=== PATIENT | male | born 1935 | race Caucasian/White ===

== ENCOUNTER 2020-06-22 11:11 | Outpatient (REF) | payer MEDICARE, SELFPAY | END 2020-06-22 11:12 | disposition home or self-care (01) | LOC: HO.LAB 11:11 | PROVIDERS: Visit Provider Internal Medicine | DX: Z20.828 Contact with and (suspected) exposure to other viral communicable diseases (principal) | CPT/HCPCS: C9803; U0003 ==

== ENCOUNTER 2020-12-28 10:44 | Emergency (ER) | payer MEDICARE, SELFPAY ==
--- NOTE | ~2020-12-28 | CT_ITS ---
EXAMINATION: CT ABDOMEN AND PELVIS WITHOUT CONTRAST CLINICAL INFORMATION: 85-year-old male with low back pain. Abdominal aortic aneurysm. Metastatic bone lesion. COMPARISON: None TECHNIQUE: Multidetector volumetric imaging was performed from the superior aspect of the liver through the pubic symphysis. Sagittal and coronal reformatted images were obtained on the technologist's workstation. Evaluation of solid organs is suboptimal given lack of IV contrast. This CT examination was performed using dose optimization techniques as appropriate, variously including the following: *Automated exposure control *Adjustment of mA and/or kV according to patient size (this includes techniques or standardized protocols for targeted exams where dose is matched to indication/reason for exam; i.e. extremities or head) *Use of iterative reconstruction technique DLP: 173 mGy-cm FINDINGS: Visualized lung bases are well aerated. The liver demonstrates normal size, contour and attenuation. A few subcentimeter hepatic hypodensities are too small to accurately characterize. The gallbladder is normal in appearance. The pancreas, spleen and adrenal glands are unremarkable. Symmetrically sized kidneys. No renal calculi or hydronephrosis bilaterally. Bilateral renal hypodensities are present, some of which demonstrate cystic characteristics and others which are too small to accurately characterize. Largest right-sided renal cyst measures approximately 3.7 cm. Largest left-sided renal cyst measures approximately 2.6 cm. The stomach is decompressed and therefore not accurately characterize. Normal caliber loops of small bowel. There is a moderate stool burden throughout the colon. Normal appendix. Normal caliber abdominal aorta which demonstrates moderate atherosclerotic disease. No gross retroperitoneal lymphadenopathy. The bladder is normal in appearance. The prostate gland is normal in size. No gross free pelvic fluid. No inguinal lymphadenopathy. Small fat-containing inguinal hernias bilaterally. Diffuse osteopenia. Moderate to severe diffuse degenerative changes of the spine. CT/CT abdomen pelvis wo con IMPRESSION: -Moderate colonic stool burden suggesting constipation. Clinical correlation recommended. -Bilateral renal cysts.
[2020-12-28 11:00] VITALS: BP 136/68; PULSE 58; RESP 16; TEMP 36.2; O2SAT 98; BMI 21.5
--- NOTE | 2020-12-28 11:17 | ED_ITS ---
HPI - Back Pain/Injury General Chief Complaint: Back Pain/Injury Stated Complaint: BACK WALSH DOWN TO FEET Time Seen by Provider: 12/28/20 11:17 Source: patient and family (Daughter) Mode of arrival: ambulatory Limitations: no limitations History of Present Illness HPI Narrative: 85-year-old male came in for evaluation of low back pain, patient stated pain started 1 week ago pain is a dull low back ache, radiates d own to the right thigh area and right leg, pain is worsening with movement and walking, nothing relieves the pain, no urinary symptoms or blood in the urine, no recent injury or fall, patient normally able to walk around for the past couple days he has been walking with a cane due to the pain, patient was seen at another ER last week was given muscle relaxant with no relief. Patient declined any abdominal pain. No fever, no chills. Related Data Allergies Allergy/AdvReac Type Severity Reaction Status Date / Time No Known Allergies Allergy Verified 12/28/20 11:20 Review of Systems Review of Systems: all other systems are reviewed and are negative Constitutional: Reports as per HPI and Reports no additional constitutional complaints Eyes: Reports as per HPI and Reports no additional eye complaints Reports system reviewed and no additional complaints, except as documented Cardiovascular: Reports as per HPI and Reports no additional cardiovascular complaints Respiratory: Reports as per HPI and Reports no additional respiratory complaints Gastrointestinal: Reports as per HPI and Reports no additional gastrointestinal complaints Genitourinary: Reports no additional female genitourinary complaints Musculoskeletal: Reports no additional musculoskeletal complaints Skin/Breast: Reports system reviewed and no additional complaints, except as docu Psychiatric: Reports no additional psychiatric complaints Endocrine: Reports no additional endocrine complaints Hematologic/Lymphatic: Reports no additional hematologic/lymphatic complaints Allergic/Immunologic: Reports no additional allergic/immunologic complaints Reports system reviewed and no additional complaints, except as documented and Reports Abnormal speech present [facility] Social History Social History Advance Directives: Yes Advance Directives on File: Yes Advance Directives Date on File: 12/28/20 Physical Exam Vital Signs: Vital Signs: Last Vital Signs Temp 97.1 F 12/28/20 11:00 Pulse 58 12/28/20 11:00 Resp 16 12/28/20 11:00 BP 136/68 12/28/20 11:00 Pulse Ox 98 12/28/20 11:00 Body Mass Index 21.5 vital signs have been reviewed as appeared to be correct. Blood pressure normal. Heart rate normal. Respiration rate normal. Temperature normal. Oxygen saturation normal. Appearance: Alert. Oriented X3. No acute distress. Head: Normal external exam. Normocephalic. Atraumatic. No Mckeon signs noted. No raccoon eyes noted Eyes: PERRLA. EOMI. Conjunctiva and sclera normal. Eyelids normal. ENT: TM's Normal. Pharynx normal. Uvula midline. Moist mucous membranes. No trismus noted. No drooling noted. No muffled voice noted. Neck: Normal inspection. Neck supple. FROM. No adenopathy. Thyroid Normal. No meningeal signs. No neck mass noted. CVS: Normal heart rate and rhythm. Heart sound normal. No murmurs noted. Pulses normal throughout. Respiratory: No respiratory distress. Painless inspiration. Breath sounds norm al. No wheezes/rales/rhonchi noted. Chest nontender. No accessory muscle usage noted or decreased air movement noted. Abdomen: Soft and nontender. Bowel sounds normal in all 4 quadrants. No distenti on noted. no abdominal pulsatile mass. Back: No CVA tenderness. Full range of motion noted. Skin: Skin warm and dry. Normal skin color. Normal skin turgor. No rashes/lesions/lacerations noted. Extremities: No lower extremity edema. Extremities exhibit normal range of motion. Extremities nontender. Neuro: Oriented X 3. No motor deficit. No sensory deficit. Reflexes normal. Course Course Course Narrative: Assessment and plan. 85-year-old male came in with lower back pain radiates to the right lower extremities for 1 week. Patient had previous evaluation at different ER was pre scribed muscle relaxant which is not improving the patient. Patient has unremarkable labs / UA. Patient also had a CT of the abdomen pelvis which ruled out metastatic lesion to the lumbar spine versus AAA versus kidney issue. Physical exam laboratory / CT are more consistent with low back pain with right- sided sciatica. Patient on Eliquis was instructed not to take NSAIDs. Will discharge the patient was bedrest, Tylenol p.r.n. MDM - Back Pain/Injury Lab Data Attestation: I reviewed the patient's lab results. Result diagrams: 12/28/20 11:37 12/28/20 11:37 Labs: Lab Results 12/28/20 12/28/20 12/28/20 Range/Units 11:37 11:37 12:08 WBC 4.6 L (4.8-10.8) X10*3/uL RBC 4.25 L (4.60-5.80) X10*6/uL Hgb 13.1 L (14.0-18.0) g/dl Hct 40.3 L (42-52) % MCV 94.8 (80-98) fL MCH 30.8 (27.0-33.0) pg MCHC 32.5 (31.0-36.0) g/dl RDW 14.2 (11.0-16.0) % Plt Count 182 (160-400) X10*3/uL MPV 10.5 (9.4-12.4) fL Immature Gran % (Auto) 0.2 (0.0-0.4) % Neut % (Auto) 46.1 (45-73) % Lymph % (Auto) 37.3 (20-40) % [place] % (Auto) 13.3 H (2-11) % Eos % (Auto) 2.4 (0-4) % Baso % (Auto) 0.7 (0-2) % Lymph # (Auto) 1.7 (1.2-4.9) X10*3/uL [place] # (Auto) 0.6 (0.1-1.2) X10*3/uL Eos # (Auto) 0.1 (0.0-0.4) X10*3/uL Baso # (Auto) 0.0 (0.0-0.2) X10*3/uL Abs Immat Gran (auto) 0.01 (0.00-0.03) X10*3/uL Absolute Neuts (auto) 2.1 (2.0-8.3) X10*3/uL Absolute Nucleated RBC 0.000 (0.0-0.012) X10*3/uL Nucleated RBC % (auto) 0.0 (0.0-0.2) /100WBC Sodium 139 (135-145) mmol/L Potassium 4.6 (3.3-5.1) mmol/L Chloride 104 (96-108) mmol/L Carbon Dioxide 26 (22-29) mmol/L Anion Gap 14 (12-20) BUN 22 H (9-16) mg/dL Creatinine 1.01 (0.5-1.4) mg/dL Estim Creat Clear Calc 51.4 Estimated GFR > 60 Random Glucose 111 (60-115) mg/dL Calcium 9.5 (8.4-10.2) mg/dL Urine Color YELLOW Urine Appearance CLEAR Urine pH 7.0 (5.0-8.0) Ur Specific [place] 1.015 (1.005-1.025) Urine Protein NEG (NEG-TRACE) MG/DL Urine Glucose (UA) NEG (NEG) MG/DL Urine Ketones NEG (NEG) MG/DL Urine Blood NEG (NEG) Urine Nitrite NEG (NEG) Ur Leukocyte Esterase NEG (NEG) Imaging Data CT scan - abdomen: Radiologist's impression: -Moderate colonic stool burden suggesting constipation. Clinical correlation recommended. -Bilateral renal cysts. Discharge Plan Discharge Clinical Impression: Sciatica Qualifiers: Laterality: right Qualified Code(s): M54.31 - Sciatica, right side Patient Disposition: Home, Self-Care Instructions: Lumbar Radiculopathy (ED) Referrals: Kellie Guerrero MD [Primary Care Provider] - 2 days
[2020-12-28 11:42] LABS: MANUAL DIFF FLAG NO
[2020-12-28 11:45] LABS: Basophils Percent Auto 0.7 % (0-2); Eosinophils Absolute Auto 0.1 X10*3/uL (0.0-0.4); Eosinophils Percent Auto 2.4 % (0-4); Hematocrit 40.3 % (42-52); Hemoglobin 13.1 g/dl (14.0-18.0); Imm Gran Abs Auto 0.01 X10*3/uL (0.00-0.03); Imm Gran Pct Auto 0.2 % (0.0-0.4); Lymphocytes Absolute Auto 1.7 X10*3/uL (1.2-4.9); Lymphocytes Percent Auto 37.3 % (20-40); Mean Corpuscular HGB Conc 32.5 g/dl (31.0-36.0); Mean Corpuscular Hemoglobin 30.8 pg (27.0-33.0); Mean Corpuscular Volume 94.8 fL (80-98); Mean Platelet Volume 10.5 fL (9.4-12.4); Monocytes Absolute Auto 0.6 X10*3/uL (0.1-1.2); Monocytes Percent Auto 13.3 % (2-11); Neutrophils Absolute Auto 2.1 X10*3/uL (2.0-8.3); Neutrophils Percent Auto 46.1 % (45-73); Platelet Count 182 X10*3/uL (160-400); Red Blood Count 4.25 X10*6/uL (4.60-5.80); Red Cell Distribution Width 14.2 % (11.0-16.0); White Blood Count 4.6 X10*3/uL (4.8-10.8)
[2020-12-28] MEDS: Acetaminophen 325 MG TABLET 650 MG PO (12:01)
[2020-12-28 12:07] LABS: Anion Gap 14 (12-20); Blood Urea Nitrogen 22 mg/dL (9-16); Calcium 9.5 mg/dL (8.4-10.2); Carbon Dioxide 26 mmol/L (22-29); Chloride 104 mmol/L (96-108); Creatinine Clr Calc Pharmacy 51.4; Estimated Glomerular Filt Rate > 60; Glucose Random 111 mg/dL (60-115); Potassium 4.6 mmol/L (3.3-5.1); Sodium 139 mmol/L (135-145)
[2020-12-28 12:14] LABS: Glucose Urine UA NEG (NEG); Leukocyte Esterase Urine NEG (NEG); Nitrite Urine NEG (NEG); Specific Gravity - Urine 1.015 (1.005-1.025); Urine Blood NEG (NEG); Urine Ketones NEG (NEG); Urine Protein NEG (NEG-TRACE)
[2020-12-28 12:17] LABS: Appearance Urine CLEAR; Color Urine YELLOW
== END 2020-12-28 13:26 | disposition home or self-care (01) ==
PROVIDERS: Emergency Provider Emergency Medicine; PCP Internal Medicine
DX: M54.31 Sciatica, right side (principal); Z79.01 Long term (current) use of anticoagulants
CPT/HCPCS: 36415; 74176; 80048; 81003; 85025; 99283; 99284

== ENCOUNTER → 2020-12-30 11:48 | Outpatient (BNVA) | payer MEDICARE, SELFPAY | PROVIDERS: PCP Internal Medicine; Visit Provider Nurse Practitioner Family | DX: M79.18 Myalgia, other site (principal) | CPT/HCPCS: 20552; 99202; J3300 ==

== ENCOUNTER 2021-01-12 09:52 | Outpatient (REF) | payer MEDICARE, SELFPAY ==
--- NOTE | ~2021-01-12 | MR_ITS ---
EXAMINATION: MR LUMBAR SPINE WITHOUT CONTRAST CLINICAL INFORMATION: Lumbar radiculopathy. COMPARISON: CT scan of the abdomen and pelvis 12/28/2020. TECHNIQUE: MRI of the lumbar spine was obtained using routine sequences without contrast. FINDINGS: There is grade 1 anterolisthesis of L5 on S1 related to facet degenerative changes at this level. Slight grade 1 retrolisthesis of L1 on L2, L2 on L3, and L3 on L4. Body heights are preserved. There are type I degenerative endplate changes at L3-L4 and to a lesser degree at L1-L2. There is loss of intervertebral disc height and T2 signal intensity at multiple levels related to disc degeneration. The tip of the conus medullaris is located at L1. No mass effect on the conus. Visualized distal cord signal intensity is normal. At L1-L2 there is a diffusely bulging disc. Mild canal stenosis. No mass effect on traversing or foraminal nerve roots. At L2-L3 there is a small shallow right subarticular protrusion superimposed upon a bulging disc. Bilateral facet degenerative change. Mild canal stenosis. There is asymmetric narrowing of the right subarticular zone causing displacement of the right traversing L3 nerve roots. No foraminal nerve root compression. At L3-L4 there is a diffusely bulging disc. Bilateral facet degenerative change. Moderate canal stenosis. No substantial mass effect on the traversing or foraminal nerve roots. At L4-L5 there is a diffusely bulging disc. Bilateral facet degenerative change. Moderate canal stenosis. Subarticular zone narrowing causes displacement of both traversing L5 nerve roots. Mild mass effect on both L4 foraminal nerve roots. At L5-S1 there is a diffusely bulging disc. Advanced bilateral facet degenerative change. No canal stenosis. Moderate compression of the right L5 foraminal nerve root. Limited visualization of the retroperitoneal anatomy reveals multiple small well marginated benign-appearing cystic lesions within both kidneys. Psoas and paraspinal muscle groups are symmetric. 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 Slight grade 1 retrolisthesis of L1 on L2, L2 on L3, and L3 on L4. There is moderate canal stenosis at L3-L4 and L4-L5. Mild canal stenosis at L1-L2 and L2-L3. There are varying degrees of mass effect on the traversing and foraminal segments of the nerve roots as described above. For instance there is moderate compression of the right L5 foraminal nerve root related to degenerative changes at L5-S1.
== END 2021-01-12 09:53 | disposition home or self-care (01) ==
LOC: HO.MRI 09:52
PROVIDERS: PCP Internal Medicine; Visit Provider Nurse Practitioner Family
DX: M54.16 Radiculopathy, lumbar region (principal)
CPT/HCPCS: 72148

== ENCOUNTER 2021-01-20 06:34 | Outpatient (REF) | payer MEDICARE, SELFPAY ==
--- NOTE | ~2021-01-20 | FL_ITS ---
EXAMINATION: XR FLUOROSCOPY WITH IMAGES CLINICAL INFORMATION: Lumbar radiculopathy. COMPARISON: None. TECHNIQUE: Fluoroscopy performed by Dr. Max. Fluoroscopy time: 1.1 minutes DAP: 5 Gy-cm2 Images: 2 FINDINGS: Images demonstrate needle placement and contrast injection adjacent to the right lateral L5 vertebral body. FL/FL guidance in treatment room IMPRESSION: Fluoroscopy guidance for spinal injection.
== END 2021-01-20 06:35 | disposition home or self-care (01) ==
LOC: HO.RADIR 06:34
PROVIDERS: Visit Provider Internal Medicine
DX: M54.16 Radiculopathy, lumbar region (principal); M46.1 Sacroiliitis, not elsewhere classified; M79.18 Myalgia, other site; I48.91 Unspecified atrial fibrillation
CPT/HCPCS: 20552; 64483; J1040; J1100; Q9967

== ENCOUNTER → 2021-02-12 13:50 | Outpatient (BNVA) | payer MEDICARE, SELFPAY | PROVIDERS: PCP Internal Medicine; Visit Provider Nurse Practitioner Family | DX: M79.18 Myalgia, other site (principal); Z79.891 Long term (current) use of opiate analgesic | CPT/HCPCS: 99212 ==

== ENCOUNTER 2021-02-17 06:20 | Outpatient (REF) | payer MEDICARE, SELFPAY | END 2021-02-17 06:21 | disposition home or self-care (01) | LOC: HO.RADIR 06:20 | PROVIDERS: Visit Provider Internal Medicine | DX: M54.16 Radiculopathy, lumbar region (principal) | CPT/HCPCS: 99212; J1040; Q9967 ==

== ENCOUNTER → 2021-10-27 14:29 | Outpatient (BNVA) | payer MEDICARE, SELFPAY | PROVIDERS: PCP Internal Medicine; Visit Provider Nurse Practitioner Family | DX: M62.830 Muscle spasm of back (principal); M79.18 Myalgia, other site | CPT/HCPCS: 20552; 99212 ==

== ENCOUNTER 2023-09-20 08:12 | Inpatient (IN) | payer MEDICARE, SELFPAY ==
[2023-09-20] VITALS (8 sets, daily range): BP systolic 113–166; BP diastolic 52–85; PULSE 58–80; RESP 14–24; TEMP 36.4–37.1; O2SAT 88–96; BMI 22.2
--- NOTE | ~2023-09-20 | XR_ITS ---
EXAMINATION: XR CHEST CLINICAL INFORMATION: Shortness of breath hypoxic CHF pneumonia COMPARISON: None available. TECHNIQUE: Frontal view of the chest was obtained. FINDINGS: Blunting of the right costophrenic recess which may reflect a trace pleural effusion versus scarring. Right basilar radiopacity suggesting evolving infectious inflammatory etiology. Interstitial prominence. No pneumothorax. Trachea is midline. Cardiac mediastinal silhouette is borderline enlarged. Aorta demonstrates atherosclerotic calcifications. Osseous structures are intact. Soft tissues are unremarkable. XR/XR chest 1V IMPRESSION: 1. Blunting of the right costophrenic recess which may reflect a trace pleural effusion versus scarring. 2. Right basilar radiopacity suggesting evolving infectious inflammatory etiology. 3. Interstitial prominence.
--- NOTE | 2023-09-20 08:48 | ECG_ITS ---
Test Reason : DYSPNEA Blood Pressure : / mmHG Vent. Rate : 055 BPM Atrial Rate : 340 BPM P-R Int : 000 ms QRS Dur : 096 ms QT Int : 434 ms P-R-T Axes : 000 057 070 degrees QTc Int : 415 ms Atrial fibrillation Left ventricular hypertrophy with repolarization abnormality ( Sokolow-Kiran , Jose product ) Possible Anterior infarct , age undetermined Abnormal ECG No previous ECGs available Referred By: Brian Forman Electronically Signed By:Jeff Murray
--- NOTE | 2023-09-20 08:49 | ED_ITS ---
HPI - SOB/Dyspnea General Chief Complaint: Dyspnea Stated Complaint: SOB Time Seen by Provider: 09/20/23 08:35 Source: patient Mode of arrival: ambulatory Limitations: no limitations History of Present Illness HPI Narrative: 88-year-old male with a history of atrial fibrillation, hypertension, dementia who was brought to emergency department by ambulance for evaluation of shortness of breath. Information came from the patient, the patient's daughter Armen who was a nurse here at [facility] and is granddaughter china who lives with him. Patient has been feeling short of breath for 2-3 days. Patient has had rhinorrhea and occasional cough. He states that he has been feeling very fatigued over the past several days, he is feeling lightheaded and dizzy. He states that minimal exertion such as getting dressed makes him short of breath. Patient denied shortness of breath but he states he did have some pain between his shoulder blades last night but had difficulty describing the care tear and timing of the pain. Patient denied fever or chills. He states he has had rhinorrhea for 1 week. Denied sore throat. He states that he has an occasional cough. He denied chest pain. He does have dyspnea on exertion. He denied nausea, vomiting, dark black stools or bloody stools. Patient states he has been noncompliant with his Eliquis for days to possibly months. Related Data Home Medications Medication Instructions Recorded Confirmed amlodipine 5 mg tablet 5 mg PO DAILY 09/20/23 09/20/23 apixaban 5 mg tablet (Eliquis) 5 mg PO BID 09/20/23 09/20/23 cholecalciferol (vitamin D3) 25 25 mcg PO DAILY 09/20/23 09/20/23 mcg (1,000 unit) tablet donepezil 5 mg tablet 5 mg PO BEDTIME 09/20/23 09/20/23 lisinopril 10 mg tablet 10 mg PO DAILY 09/20/23 09/20/23 omeprazole 40 mg capsule,delayed 40 mg PO DAILY 09/20/23 09/20/23 release Allergies Allergy/AdvReac Type Severity Reaction Status Date / Time No Known Allergies Allergy Verified 09/20/23 08:35 Review of Systems 2 Review of Systems: Yes all other systems are reviewed and are negative PMFSH Past Medical History [facility] Narrative: Social history: He lives with his granddaughter lives was here in the emergency department with him. Patient is a former smoker and stop smoking 12 years prior he has a greater than 40 pack-year history of smoking. Patient denies alcohol and drug use. Medical History (Updated 09/20/23 @ 12:08 by Brian Forman MD) Sacroiliitis Lumbar radiculopathy, right Gluteal pain Atrial fibrillation Social History Social History Smoked in Last 30 Days: No Use of substances other than those prescribed or required for medical reasons: No Advance Directives: No Advance Directives Information Provided: Yes Advance Directives Date on File: 12/28/20 Physical Exam 2 Vital Signs: Vital Signs: Last Vital Signs Temp 97.6 F 09/20/23 12:24 Pulse 66 09/20/23 12:31 Resp 24 H 09/20/23 12:24 BP 150/82 H 09/20/23 12:31 Pulse Ox 96 09/20/23 12:24 O2 Del Method Nasal Cannula 09/20/23 12:24 O2 Flow Rate 2 09/20/23 12:24 BMI result Body Mass Index 22.2 Vital signs revealed an elevated blood pressure of 166/78. Patient's O2 saturation on room air arrange from 88-90%, on 2 L via nasal cannula patient's O2 saturation is 94%. Exam: General: Awake, alert, appears to be mildly dyspneic Head: Normocephalic, atraumatic EENT: PERRL, Lids normal, sclera normal, conjunctiva normal, nose normal , ears normal, throat without erythema or exudates Neck: Supple, no adenopathy Lung: Rales at the bases with no wheezing or rhonchi, breath sounds are symmetric bilaterally Chest: symmetric movement, nontender Heart: regular rate and rhythm, normal S1, S2 no murmurs or rubs Abdomen: soft, non-tender, nondistended, normal bowel sounds Back: no vertebral tenderness, no CVAT Extremities: no deformities, moves all extremities symmetrically, trace to 1+ pitting edema bilaterally symmetric Neuro: Awake, alert, oriented, normal speech, cranial nerves intact, moves all extremities symmetrically Psych: Pleasant, cooperative Medications Administered Generic Name Dose Route Start Last Admin Trade Name Freq PRN Reason Stop Dose Admin Heparin Sodium/Sodium Chloride 25,000 unit in 250 mls @ 0 mls/hr 09/20/23 12:00 09/20/23 12:48 Heparin Sodium,Porcine/1/2ns IVCONT 12 units/kg/hr .Q0M KELSEY 8.41 mls/hr Administration Protocol Per Protocol Discontinued Medications Generic Name Dose Route Start Last Admin Trade Name Racheal PRN Reason Stop Dose Admin Aspirin 324 mg 09/20/23 11:58 09/20/23 12:30 Aspirin 81 Mg Tab.Chew PO 09/20/23 11:59 324 mg ONCE ONE Administration Furosemide 20 mg 09/20/23 10:23 09/20/23 10:43 Furosemide 20 Mg/2 Ml Vial IVPUSH 09/20/23 10:24 20 mg ONCE ONE Administration Protocol Heparin Sodium (Porcine) 4,000 unit 09/20/23 11:58 09/20/23 12:50 Heparin Sodium,Porcine 5,000 Unit/Ml Vial IVPUSH 09/20/23 11:59 4,000 unit ONCE ONE Administration Nitroglycerin 1 inch 09/20/23 11:58 09/20/23 12:31 Nitroglycerin 2 % Oint 1 Gm Packet TRANSDERMA 09/20/23 11:59 1 inch ONCE ONE Administration Medical Decision Making Medical Decision Making MDM Narrative: 88-year-old male with a history of atrial fibrillation, hypertension dementia who was brought to emergency department by ambulance for evaluation of shortness of breath times 2-3 days with increased symptoms over the past 24 hours, patient also is complaining of severe fatigue and dyspnea with minimal exertion. He did have pain between shoulder blades last night but had difficulty characterizing the timing and duration of the pain. Patient has had rhinorrhea and a occasional cough for several days. He does feel lightheaded and dizzy with exertion as well. Patient states he has been noncompliant with his Eliquis over the last several days or possibly longer. Vital signs revealed an elevated blood pressure and a low O2 saturation of 88-90% on room air, corrected with oxygen 2 L via nasal cannula. Differential diagnosis: ?Includes but is not limited to pneumonia, congestive heart failure, viral syndrome, anemia, electrolyte abnormalities, arrhythmias Following evaluation was ordered: CBC, CMP, BNP, lactic acid, lipase, PT/INR, PTT, troponin, urinalysis, COVID-19, influenza, RSV, blood cultures x2 Patient was initially treated with the following: Oxygen 2 L via nasal cannula Course: 12:01 My interpretation patient's laboratory evaluation as follows: Platelets low 157,000, potassium high 5.7. BUN elevated 22 with a normal creatinine of 0.99. Troponin elevated 2089. 3 hour troponin is due at 12:30 hours. BNP elevated 08/15/2045. LFTs and lipase were normal. Patient's 12 EKG was consistent with atrial fibrillation/flutter with no acute ST segment elevation depression. Chest x-ray on my interpretation is consistent with congestive heart failure and hyperinflated lungs. I did review the radiology reading but I do not think the patient has infectious process at this time. I did consult our rubber goods repairer on-call, Dr. Murray and he did evaluate the patient in the emergency department. He felt that the patient most likely had an NSTEMI and given the fact the patient has not been taking Eliquis, Dr. Murray recommended NSTEMI heparin protocol, aspirin 324 mg orally, nitro paste 1 in to chest wall. He did agree with Lasix 20 mg IV but felt that the patient should only be gently diuresed. He also requested an echocardiogram. He felt that the patient could be managed at [facility] at this time. I will discuss admission with the covering hospitalist. 13:16 Patient's 1st high sensitive troponin I was elevated at 2089.1 with 3 hour repeat value 1648 which is less than a 50% delta. Admission/Observation Consideration of admission/observation: Escalation of care including admission/observation considered Consult Healthcare Provider Management of the patient was discussed with: Hospitalist (Dr. Werner) and Tea Room Manager (Grading Machine Feeder, Dr. Murray) Lab Data MDM Lab Attestation statement: I reviewed the patient's lab results. 09/20/23 09:30 09/20/23 09:31 Labs: Lab Results 09/20/23 09/20/23 09/20/23 Range/Units 09:30 09:31 10:23 WBC 4.8 (4.8-10.8) X10*3/uL RBC 4.65 (4.60-5.80) X10*6/uL Hgb 14.2 (14.0-18.0) g/dl Hct 44.4 (42.0-52.0) % MCV 95.5 (80.0-98.0) fL MCH 30.5 (27.0-33.0) pg MCHC 32.0 (31.0-36.0) g/dl RDW 14.2 (11.0-16.0) % Plt Count 157 L (160-400) X10*3/uL MPV 10.6 (9.4-12.4) fL Immature Gran % (Auto) 0.0 (0.0-0.4) % Neut % (Auto) 64.3 (45-73) % Lymph % (Auto) 21.9 (20-40) % Mercer % (Auto) 11.8 H (2-11) % Eos % (Auto) 1.0 (0-4) % Baso % (Auto) 1.0 (0-2) % Lymph # (Auto) 1.1 L (1.2-4.9) X10*3/uL Mercer # (Auto) 0.6 (0.1-1.2) X10*3/uL Eos # (Auto) 0.1 (0.0-0.4) X10*3/uL Baso # (Auto) 0.1 (0.0-0.2) X10*3/uL Abs Immat Gran (auto) 0.00 (0.00-0.03) X10*3/uL Absolute Neuts (auto) 3.1 (2.0-8.3) x10*3/uL Absolute Nucleated RBC 0.000 (0.0-0.012) X10*3/uL Nucleated RBC % (auto) 0.0 (0.0-0.2) /100WBC PT 13.1 (11.1-13.3) SEC INR 1.1 (0.9-1.1) APTT 30.4 (26.0-36.8) SEC Sodium 142 (135-145) mmol/L Potassium 5.7 H (3.3-5.1) mmol/L Chloride 108 (96-108) mmol/L Carbon Dioxide 28 (22-29) mmol/L Anion Gap 12 (12-20) BUN 22 H (9-16) mg/dL Creatinine 0.99 (0.5-1.4) mg/dL Estim Creat Clear Calc 51.1 Estimated GFR > 60 Random Glucose 112 (60-115) mg/dL Lactic Acid 1.5 (0.5-2.0) mmol/L Calcium 9.3 (8.4-10.2) mg/dL Total Bilirubin 0.5 (0.0-1.0) mg/dL AST 26 (5-37) U/L ALT 17 (0-40) U/L Alkaline Phosphatase 84 (39-117) U/L Troponin I High Sens 2089.1 H* (<3.5-35.0) ng/L B-Natriuretic Peptide 2246 H (<100) pg/mL Total Protein 6.7 (6.5-8.0) g/dL Albumin 3.9 (3.5-5.0) g/dL Lipase 21 (8-78) U/L Urine Color Urine Appearance Urine pH (5.0-9.0) Ur Specific Citra (1.005-1.025) Urine Protein (Neg-Trace) mg/dL Urine Glucose (UA) (Negative) mg/dL Urine Ketones (Negative) mg/dL Urine Blood (Negative) Urine Nitrite (Negative) Ur Leukocyte Esterase (Negative) Urine RBC (0-2) /HPF Urine WBC (0-5) /HPF Ur Squamous Epith Cells (0-2) /HPF Urine Bacteria (None Seen) Hyaline Casts (0-2) /LPF Influenza Type A (PCR) NEGATIVE (Negative) Influenza Type B (PCR) NEGATIVE (Negative) RSV RNA Qual (PCR) NEGATIVE (Negative) SARS-CoV-2 RNA (RT-PCR) NEGATIVE (Negative) 09/20/23 09/20/23 Range/Units 10:57 12:16 WBC (4.8-10.8) X10*3/uL RBC (4.60-5.80) X10*6/uL Hgb (14.0-18.0) g/dl Hct (42.0-52.0) % MCV (80.0-98.0) fL MCH (27.0-33.0) pg MCHC (31.0-36.0) g/dl RDW (11.0-16.0) % Plt Count (160-400) X10*3/uL MPV (9.4-12.4) fL Immature Gran % (Auto) (0.0-0.4) % Neut % (Auto) (45-73) % Lymph % (Auto) (20-40) % Mercer % (Auto) (2-11) % Eos % (Auto) (0-4) % Baso % (Auto) (0-2) % Lymph # (Auto) (1.2-4.9) X10*3/uL Mercer # (Auto) (0.1-1.2) X10*3/uL Eos # (Auto) (0.0-0.4) X10*3/uL Baso # (Auto) (0.0-0.2) X10*3/uL Abs Immat Gran (auto) (0.00-0.03) X10*3/uL Absolute Neuts (auto) (2.0-8.3) x10*3/uL Absolute Nucleated RBC (0.0-0.012) X10*3/uL Nucleated RBC % (auto) (0.0-0.2) /100WBC PT (11.1-13.3) SEC INR (0.9-1.1) APTT (26.0-36.8) SEC Sodium (135-145) mmol/L Potassium (3.3-5.1) mmol/L Chloride (96-108) mmol/L Carbon Dioxide (22-29) mmol/L Anion Gap (12-20) BUN (9-16) mg/dL Creatinine (0.5-1.4) mg/dL Estim Creat Clear Calc Estimated GFR Random Glucose (60-115) mg/dL Lactic Acid (0.5-2.0) mmol/L Calcium (8.4-10.2) mg/dL Total Bilirubin (0.0-1.0) mg/dL AST (5-37) U/L ALT (0-40) U/L Alkaline Phosphatase (39-117) U/L Troponin I High Sens 1648.3 H* (<3.5-35.0) ng/L B-Natriuretic Peptide (<100) pg/mL Total Protein (6.5-8.0) g/dL Albumin (3.5-5.0) g/dL Lipase (8-78) U/L Urine Color Yellow Urine Appearance Clear Urine pH 5.5 (5.0-9.0) Ur Specific Citra 1.025 (1.005-1.025) Urine Protein 100 (2+) H (Neg-Trace) mg/dL Urine Glucose (UA) Negative (Negative) mg/dL Urine Ketones Negative (Negative) mg/dL Urine Blood Negative (Negative) Urine Nitrite Negative (Negative) Ur Leukocyte Esterase Negative (Negative) Urine RBC 0-2 (0-2) /HPF Urine WBC 0-5 (0-5) /HPF Ur Squamous Epith Cells 0-2 (0-2) /HPF Urine Bacteria None Seen (None Seen) Hyaline Casts 0-2 (0-2) /LPF Influenza Type A (PCR) (Negative) Influenza Type B (PCR) (Negative) RSV RNA Qual (PCR) (Negative) SARS-CoV-2 RNA (RT-PCR) (Negative) Independent Interpretation I performed an independent interpretation of an: EKG and Plain X-Ray Interpretation: My interpretation patient's EKG done at 08:59 hours is as follows: Atrial flutter with variable AV block with a rate of 55, normal QRS duration QTC duration, poor R-wave progression V1 through V3, peaked T-waves V2 through V4, no ST segment elevation, no ST segment depression, no PVCs My independent interpretation patient's chest x-ray is as follows: Hyperinflated lungs, increased interstitial markings bilaterally consistent with pulmonary edema Radiology Impression Discussion of test interpretation with radiology: I have reviewed the radiologist's reading. Radiologist Impression: XR chest 1V IMPRESSION: 1. Blunting of the right costophrenic recess which may reflect a trace pleural effusion versus scarring. 2. Right basilar radiopacity suggesting evolving infectious inflammatory etiology. 3. Interstitial prominence. Dictated By: Bibiana Gandara MD Independent Historian Clinical information obtained from an independent historian. History obtained from or confirmed by: Other (Daughter and granddaughter) Chronic Conditions Patient?s care impacted by: Hypertension Critical Care Time Critical Care Time Critical Care Time: Yes Total Critical Care Time: 80 Attestation: Critical Care: The patient was critically ill with a high probability of imminent or life threatening deterioration. I spent greater than 30 minutes of discontinuous time evaluating the patient,delivering critical care at the bedside, discussing and evaluating pertinent data with consultants. Critical care time does not include time spent performing separately billable procedures or teaching. Total time spent performing critical care was 80 minutes. Discharge Plan Discharge Clinical Impression: Acute non-ST elevation myocardial infarction (NSTEMI) Congestive heart failure Qualifiers: Heart failure chronicity: acute Atrial flutter Qualifiers: Atrial flutter type: unspecified Qualified Code(s): I48.92 - Unspecified atrial flutter Patient Disposition: Admitted As Inpatient
[2023-09-20 09:40] LABS: MANUAL DIFF FLAG NO
[2023-09-20 09:41] LABS: Basophils Absolute Auto 0.1 X10*3/uL (0.0-0.2); Eosinophils Absolute Auto 0.1 X10*3/uL (0.0-0.4); Hematocrit 44.4 % (42.0-52.0); Hemoglobin 14.2 g/dl (14.0-18.0); Lymphocytes Absolute Auto 1.1 X10*3/uL (1.2-4.9); Lymphocytes Percent Auto 21.9 % (20-40); Mean Corpuscular Hemoglobin 30.5 pg (27.0-33.0); Mean Corpuscular Volume 95.5 fL (80.0-98.0); Mean Platelet Volume 10.6 fL (9.4-12.4); Monocytes Absolute Auto 0.6 X10*3/uL (0.1-1.2); Monocytes Percent Auto 11.8 % (2-11); Neutrophils Absolute Auto 3.1 x10*3/uL (2.0-8.3); Neutrophils Percent Auto 64.3 % (45-73); Platelet Count 157 X10*3/uL (160-400); Red Blood Count 4.65 X10*6/uL (4.60-5.80); Red Cell Distribution Width 14.2 % (11.0-16.0); White Blood Count 4.8 X10*3/uL (4.8-10.8)
[2023-09-20 09:55] LABS: Lactic Acid 1.5 mmol/L (0.5-2.0)
[2023-09-20 09:57] LABS: Alanine Aminotransferase 17 U/L (0-40); Albumin Level 3.9 g/dL (3.5-5.0); Alkaline Phosphatase 84 U/L (39-117); Anion Gap 12 (12-20); Aspartate Amino Transferase 26 U/L (5-37); Bilirubin Total 0.5 mg/dL (0.0-1.0); Blood Urea Nitrogen 22 mg/dL (9-16); Calcium 9.3 mg/dL (8.4-10.2); Carbon Dioxide 28 mmol/L (22-29); Chloride 108 mmol/L (96-108); Creatinine Clr Calc Pharmacy 51.1; Estimated Glomerular Filt Rate > 60; Glucose Random 112 mg/dL (60-115); Lipase 21 U/L (8-78); Potassium 5.7 mmol/L (3.3-5.1); Sodium 142 mmol/L (135-145); Total Protein 6.7 g/dL (6.5-8.0)
[2023-09-20 10:02] LABS: B Type Natriuretic Peptide 2246 pg/mL (<100)
[2023-09-20 10:07] LABS: Troponin-I High Sensitivity 2089.1 ng/L (<3.5-35.0)
[2023-09-20 10:23] LABS: Influenza A PCR NEGATIVE (Negative); Influenza B PCR NEGATIVE (Negative); Resp Syncy Virus RNA Qual PCR NEGATIVE (Negative); SARS COV2 PCR INHOUSE NEGATIVE (Negative)
[2023-09-20] MEDS: Furosemide 20 MG/2 ML VIAL IVPUSH (10:43)
[2023-09-20 10:44] LABS: INTERNATIONAL NORM RATIO 1.1 (0.9-1.1); Prothrombin Time 13.1 SEC (11.1-13.3)
[2023-09-20 10:47] LABS: Partial Thromboplastin Time 30.4 SEC (26.0-36.8)
[2023-09-20 11:18] LABS: Appearance Urine Clear; Color Urine Yellow; Glucose Urine UA Negative (Negative); Leukocyte Esterase Urine Negative (Negative); Nitrite Urine Negative (Negative); PH 5.5 (5.0-9.0); Specific Gravity - Urine 1.025 (1.005-1.025); UMIC TRIGGER UACC YES; Urine Blood Negative (Negative); Urine Ketones Negative (Negative); Urine Protein 100 (2+) mg/dL (Neg-Trace)
[2023-09-20 11:23] LABS: Bacteria Urine None Seen (None Seen); Hyaline Casts Urine 0-2 /LPF (0-2); RBC Urine 0-2 /HPF (0-2); Squamous Epithelial Cell Urine 0-2 /HPF (0-2); WBC Urine 0-5 /HPF (0-5)
--- NOTE | 2023-09-20 12:05 | CA_ITS ---
Transthoracic Echocardiogram Patient (Last, First, Middle): Colton Dawn, Gender: Male Date of : 1935 Age: 88 Procedure Date: 09/20/2023 Procedure Type: Transthoracic Echocardiogram Location: ER Height: 177.8 cm Weight: 70.76 kg BSA: 1.88 m2 Heart Rate: bpm BP: 153 / 74 mmHg Patient Care Technician: Referring MD: Brian Forman MD Symptoms: Elevated troponin, elevated BNP, evaluate EF and w Study Quality: Adequate Conclusions: - Normal left ventricular cavity size. There is mildly increased left ventricular wall thickness. The left ventricular systolic function is moderately decreased. The visually estimated ejection fraction is between 30-35%. There is evidence of regional wall motion abnormalities. Diastolic function is indeterminate on the basis of available data. - The apex, apical anterior, mid anterior, apical lateral, and mid anterolateral segments are akinetic. - Mildly increased right ventricular cavity size. There is normal right ventricular systolic function. - Severe biatrial enlargement. - Mild pulmonary hypertension is present. Findings Left Ventricle Normal left ventricular cavity size. There is mildly increased left ventricular wall thickness. The left ventricular systolic function is moderately decreased. The visually estimated ejection fraction is between 30 35%. There is evidence of regional wall motion abnormalities. Diastolic function is indeterminate on the basis of available data. Wall Motion Rest Echo Findings The apex, apical anterior, mid anterior, apical lateral, and mid anterolateral segments are akinetic. Right Ventricle Mildly increased right ventricular cavity size. There is normal right ventricular systolic function. Atria Severe biatrial enlargement. Aortic Valve There is a normal trileaflet aortic valve. There is mild calcification of the aortic valve. There is no aortic valve stenosis. There is trace (trivial) aortic valve regurgitation. Mitral Valve There is moderate mitral annular calcification. There is mild mitral valve regurgitation. There is no mitral valve stenosis. Pulmonic Valve The pulmonic valve is likely normal. Tricuspid Valve Normal tricuspid valve structure. There is moderate tricuspid valve regurgitation. Normal right atrial pressure. Mild pulmonary hypertension is present. Great Vessels All visible segments of the aorta are normal in size. Venous The inferior vena cava is normal in size and collapses greater than 50% with inspiration. Pericardium/Pleural There is no evidence of pericardial effusion. Prior Study Comparison No prior study available for comparison. Measurements 2D Linear Measurements IVSd: 1.23 0.6-0.9/0.6-1.0 cm LVIDd: 4.96 3.9-5.3/4.2-5.9 cm LVIDd Index: 2.64 2.4-3.2/2.2-3.1 cm/m2 LVIDs: 3.95 2.0-3.6 cm LVPWd: 1.27 0.7-1.1 cm LA Diam: 4.80 2.7-3.8/3.0-4.0 cm LAIDs Index: 2.55 1.5-2.3 cm/m2 LV Mass: 304.86 67-162/88-224 g LV Mass Index: 162.16 43-95/49-115 g/m2 LVOT Diam: 2.30 3.0+(-)1.3 cm 2D Systolic Function EF 4C: 35.00 >55% EF 2C: 40.60 >55% EF BiP: 37.20 >55% Mitral Valve MV Pk E: 0.70 MV Decel Time: 325.00 E'Lateral: 9.68 E'Medial: 5.98 E/E' Med: 11.70 E/E' Lat: 7.20 PHT: 95.00 MVA PHT: 2.32 Decel [place]: 2.15 Aortic Valve AoV Pk Jignesh: 2.31 AoV Mn Jignesh: 1.33 AoV VTI: 0.44 AoV Pk Grad: 21.00 Aov Mn Grad: 9.00 SAW Cont.VTI: 1.44 LVOT LVOT Pk Jignesh: 0.74 LVOT Mn Jignesh: 0.46 LVOT VTI: 0.15 LVOT Pk Grad: 2.00 LVOT Mn Grad: 1.00 LVOT Diam: 2.30 LVOT Area: 4.15 Diastolic Function MV Pk E: 0.70 E'Medial: 5.98 E/E' Med: 11.70 E' Laterial: 9.68 E/E' Lat: 7.20 Right Ventricle TAPSE (mm): 22.60 Tricuspid Valve TR Pk Jignesh: 3.13 TR Pk Grad: 39.00 RA Press: 3.00 RVSP: 42.00 Great Vessels Aorta Sinus of Valsalva: 3.70 2.0-3.5 cm Ao Asc: 3.40 2.1-3.4 cm Pulmonary Valve PV Pk Jignesh: 0.87 Peak PV Grad: 3.00 Updated in Other Vendor System with Status of Final Jeff Murray MD electronically signed on 09/20/2023 4:25:11 PM with status of Final
--- NOTE | 2023-09-20 12:29 | PHA.MEDREC ---
Pharmacy Consult ? Medication Reconciliation Pharmacy has completed the medication reconciliation. Patient's daughter at bedside to name medications; she noted that he has not been taking his Eliquis but he is supposed to be on it
[2023-09-20] MEDS: Aspirin 81 MG TAB.CHEW 324 MG PO (12:30)
[2023-09-20] MEDS: Nitroglycerin 2 % Oint 1 GM Packet 1 INCH TRANSDERMA (12:31)
[2023-09-20 12:48] LABS: Troponin-I High Sensitivity 1648.3 ng/L (<3.5-35.0)
[2023-09-20] MEDS: Heparin Sodium,Porcine/1/2NS 25,000 UNIT/250 ML IV.SOLN 8.41 UNIT IVCONT (12:48)
[2023-09-20] MEDS: Heparin Sodium,Porcine 5,000 UNIT/ML VIAL 4000 UNIT IVPUSH (12:50)
--- NOTE | 2023-09-20 14:07 | PM.IMHP ---
History of Present Illness Date of Service: 09/20/23 Chief Complaint: sob 80-year-old man presented to ER with complaints of shortness of breath and back pain that started yesterday. He woke up this morning and was still having some mild symptoms of back pain and trouble breathing and his daughter decided to call the ambulance. Patient has a history of dementia but is mostly independent, lives with family members. He denies chest pain, shortness for breath, nausea, vomiting, diarrhea, fever, chills, recent travel at this time. In the ER initial troponin was 2089, BNP 2246, EKG showing atrial flutter with variable AV block and possible anterior infarct, elevated blood pressure reading an elevated potassium 5.7. Chest x-ray showing right basilar radiopacity suggesting involving infectious inflammatory etiology although patient has no white blood cell count or leukocytosis. In the ER he was started on IV heparin, given nitroglycerin topically, full-dose aspirin, Lokelma for hyperkalemia, IV Lasix. Plan is to admit patient for further management and treatment of acute NSTEMI and acute congestive heart failure. Review of Systems Review of Systems: Denies any recent fever chills or decrease in appetite respiratory see HPI cardiovascular See HPI gastrointestinal denies any dysphagia abdominal pain nausea vomiting or diarrhea genitourinary denies any dysuria frequency or hematuria musculoskeletal denies any joint pain or swelling neuropsych denies any weakness or seizures all other systems reviewed are negative [facility] Medical History (Updated 09/20/23 @ 12:08 by Brian Forman MD) Sacroiliitis Lumbar radiculopathy, right Gluteal pain Atrial fibrillation Social History Smoked in Last 30 Days: No Use of substances other than those prescribed or required for medical reasons: No Advance Directives: No Advance Directives Information Provided: Yes Advance Directives Date on File: 12/28/20 Meds Allergies Allergy/AdvReac Type Severity Reaction Status Date / Time No Known Allergies Allergy Verified 09/20/23 08:35 Active Medications: Current Medications Acetaminophen (Acetaminophen 325 Mg Tablet) 650 mg PO Q6H PRN PRN Reason: Pain, Mild (Pain Scale 1-3) Aspirin (Aspirin 81 Mg Tab.Chew) 81 mg PO DAILY [facility] Atorvastatin Calcium (Atorvastatin Calcium 40 Mg Tablet) 40 mg PO BEDTIME [facility] Furosemide (Furosemide 40 Mg/4 Ml Vial) 40 mg IVPUSH BID@0900,1800 [facility]; Protocol Heparin Sodium (Porcine) (Heparin Sodium,Porcine 5,000 Unit/Ml Vial) 2,800 unit 40 unit/kg (2800 unit) IVPUSH PROTOCOL BOLUS PRN; Protocol PRN Reason: 40 unit/kg - Heparin Protocol Heparin Sodium (Porcine) (Heparin Sodium,Porcine 5,000 Unit/Ml Vial) 5,600 unit 80 unit/kg (5600 unit) IVPUSH PROTOCOL BOLUS PRN; Protocol PRN Reason: 80 unit/kg - Heparin Protocol Heparin Sodium/Sodium Chloride (Heparin Sodium,Porcine/1/2ns) 25,000 unit in 250 mls @ 0 mls/hr IVCONT .Q0M [facility]; Protocol Last Admin: 09/20/23 12:48 Dose: 12 units/kg/hr, 8.41 mls/hr Ondansetron HCl (Ondansetron Hcl 4 Mg/2 Ml Vial) 4 mg IVPUSH Q8H PRN PRN Reason: Nausea and Vomiting Sodium Chloride (0.9 % Sodium Chloride Flush 3 Ml Syringe) [facility] Sodium Zirconium Cyclosilicate (Sodium Zirconium Cyclosilicate 10 Gm Powd.Pack) 10 gm PO ONCE ONE Stop: 09/20/23 14:06 Home Medications Medication Instructions Recorded Confirmed Last Taken Type amlodipine 5 mg tablet 5 mg PO DAILY 09/20/23 09/20/23 Unknown History apixaban 5 mg tablet (Eliquis) 5 mg PO BID 09/20/23 09/20/23 Unknown History cholecalciferol (vitamin D3) 25 25 mcg PO DAILY 09/20/23 09/20/23 Unknown History mcg (1,000 unit) tablet donepezil 5 mg tablet 5 mg PO BEDTIME 09/20/23 09/20/23 Unknown History lisinopril 10 mg tablet 10 mg PO DAILY 09/20/23 09/20/23 Unknown History omeprazole 40 mg capsule,delayed 40 mg PO DAILY 09/20/23 09/20/23 Unknown History release Physical Exam Vital Signs and Narrative: Vital Signs: Last Vital Signs Temp 97.6 F 09/20/23 12:24 Pulse 66 09/20/23 12:31 Resp 24 H 09/20/23 12:24 BP 150/82 H 09/20/23 12:31 Pulse Ox 96 09/20/23 12:24 O2 Del Method Nasal Cannula 09/20/23 12:24 O2 Flow Rate 2 09/20/23 12:24 BMI result Body Mass Index 22.2 Appearing in no acute distress head is normocephalic atraumatic eyes pupils are PERRLA sclera is anicteric mouth throat mucous membranes are intact and moist neck is supple no lymphadenopathy, no JVD noted lung sounds are clear to auscultation heart regular rate rhythm, clear, systolic murmur positive bowel sounds, abdomen is soft, nontender neuro patient is alert x3, no focal deficits Results Labs 09/20/23 09:30 09/20/23 09:31 Labs: Laboratory Results - last 24 hr 09/20/23 09/20/23 09/20/23 09:30 09:31 10:23 MCV 95.5 MCH 30.5 MCHC 32.0 RDW 14.2 Plt Count 157 L MPV 10.6 Immature Gran % (Auto) 0.0 Neut % (Auto) 64.3 Lymph % (Auto) 21.9 [place] % (Auto) 11.8 H Eos % (Auto) 1.0 Baso % (Auto) 1.0 Lymph # (Auto) 1.1 L [place] # (Auto) 0.6 Eos # (Auto) 0.1 Baso # (Auto) 0.1 Abs Immat Gran (auto) 0.00 Absolute Neuts (auto) 3.1 Absolute Nucleated RBC 0.000 Nucleated RBC % (auto) 0.0 PT 13.1 INR 1.1 APTT 30.4 Anion Gap 12 Estim Creat Clear Calc 51.1 Estimated GFR > 60 Random Glucose 112 Lactic Acid 1.5 Calcium 9.3 Total Bilirubin 0.5 AST 26 ALT 17 Alkaline Phosphatase 84 Troponin I High Sens 2089.1 H* B-Natriuretic Peptide 2246 H Total Protein 6.7 Albumin 3.9 Lipase 21 Urine Color Urine Appearance Urine pH Ur Specific [place] Urine Protein Urine Glucose (UA) Urine Ketones Urine Blood Urine Nitrite Ur Leukocyte Esterase Urine RBC Urine WBC Ur Squamous Epith Cells Urine Bacteria Hyaline Casts Influenza Type A (PCR) NEGATIVE Influenza Type B (PCR) NEGATIVE RSV RNA Qual (PCR) NEGATIVE SARS-CoV-2 RNA (RT-PCR) NEGATIVE 09/20/23 09/20/23 10:57 12:16 MCV MCH MCHC RDW Plt Count MPV Immature Gran % (Auto) Neut % (Auto) Lymph % (Auto) [place] % (Auto) Eos % (Auto) Baso % (Auto) Lymph # (Auto) [place] # (Auto) Eos # (Auto) Baso # (Auto) Abs Immat Gran (auto) Absolute Neuts (auto) Absolute Nucleated RBC Nucleated RBC % (auto) PT INR APTT Anion Gap Estim Creat Clear Calc Estimated GFR Random Glucose Lactic Acid Calcium Total Bilirubin AST ALT Alkaline Phosphatase Troponin I High Sens 1648.3 H* B-Natriuretic Peptide Total Protein Albumin Lipase Urine Color Yellow Urine Appearance Clear Urine pH 5.5 Ur Specific [place] 1.025 Urine Protein 100 (2+) H Urine Glucose (UA) Negative Urine Ketones Negative Urine Blood Negative Urine Nitrite Negative Ur Leukocyte Esterase Negative Urine RBC 0-2 Urine WBC 0-5 Ur Squamous Epith Cells 0-2 Urine Bacteria None Seen Hyaline Casts 0-2 Influenza Type A (PCR) Influenza Type B (PCR) RSV RNA Qual (PCR) SARS-CoV-2 RNA (RT-PCR) Imaging Radiologist's Impressions: Impressions Chest X-Ray 09/20/23 09:51 IMPRESSION: 1. Blunting of the right costophrenic recess which may reflect a trace pleural effusion versus scarring. 2. Right basilar radiopacity suggesting evolving infectious inflammatory etiology. 3. Interstitial prominence. Assessment and Plan (1) Atrial flutter: Qualifiers: Atrial flutter type: unspecified Qualified Code(s): I48.92 - Unspecified atrial flutter Status: Acute Plan 88 year old man with hx of HTN, GERD, dementia admitted with NSTEMI and acute CHF NSTEMI no cp or sob started on IV heparin asa, statin cardiology consultation patients is DNR and is not interested in aggressive tx that may include cardiac cath, would prefer conservative management Acute CHF, unspecified IV lasix 40 mg daily Echo ordered monitor daily weights intake and output Paroxysmal afib/flutter on Eliquis at home, hold for IV heparin not on rate control medication Hypertension continue lisinopril GERD continue PPI dementia continue aricept DVT prophylaxis with IV heparin for NSTEMI DNR/DNI Patient requires at least 48 hours of inpatient admission for treatment of NSTEMI requiring IV heparin and close monitoring as well as specialty consultation and treatment for acute congestive heart failure requiring IV diuretics. Due to patient's age and other comorbidities he is at high risk for decompensation. Quality Stroke Does the patient have a stroke diagnosis?: No VTE Prior VTE?: No VTE Risk Level:: Medical - moderate - high VTE Device Contraindication: Treatment Not Indicated VTE Drug Contraindication: N/A - Med Ordered
--- NOTE | 2023-09-20 14:12 | PM.CNCAR ---
History of Present Illness History of Present Illness Date of Service: 09/20/23 Requesting physician: Marie Lozano Chief complaint: NSTEMI Narrative: Pleasant 88-year-old gentleman who has background history of atrial fibrillation on Eliquis and follows with Dr. Root presenting for shortness of breath and upper back discomfort. He had an episode of upper back discomfort lasting for few hours yesterday. He said subsequent to that he started having some shortness of breath and is breathing worsened and he came to the ER. He has not had any significant shortness of breath previously. He was taking Eliquis off and on but recently has been missing it more frequently. He denies any cardiomyopathy or any history of coronary disease. In the ER he was noticed to have elevated BNP as well as troponin levels. EKG was showing atrial fibrillation without any acute ischemic changes. Chest x-ray showed mild congestion and he did have clear symptoms of heart failure with orthopnea and dyspnea. He has been given diuretics and is on supplemental oxygen. He is feeling better. [facility] Past Medical History Medical History (Updated 09/20/23 @ 12:08 by Brian Forman MD) Sacroiliitis Lumbar radiculopathy, right Gluteal pain Atrial fibrillation Social History Social History Smoked in Last 30 Days: No Use of substances other than those prescribed or required for medical reasons: No Advance Directives: No Advance Directives Information Provided: Yes Advance Directives Date on File: 12/28/20 Meds Allergies Allergy/AdvReac Type Severity Reaction Status Date / Time No Known Allergies Allergy Verified 09/20/23 08:35 Active Medications: Current Medications Acetaminophen (Acetaminophen 325 Mg Tablet) 650 mg PO Q6H PRN PRN Reason: Pain, Mild (Pain Scale 1-3) Amlodipine Besylate (Amlodipine Besylate 5 Mg Tablet) 5 mg PO DAILY [facility]; Protocol Aspirin (Aspirin 81 Mg Tab.Chew) 81 mg PO DAILY [facility] Atorvastatin Calcium (Atorvastatin Calcium 40 Mg Tablet) 40 mg PO BEDTIME [facility] Donepezil HCl (Donepezil Hcl 5 Mg Tablet) 5 mg PO BEDTIME [facility] Furosemide (Furosemide 40 Mg/4 Ml Vial) 40 mg IVPUSH BID@0900,1800 [facility]; Protocol Heparin Sodium (Porcine) (Heparin Sodium,Porcine 5,000 Unit/Ml Vial) 2,800 unit 40 unit/kg (2800 unit) IVPUSH PROTOCOL BOLUS PRN; Protocol PRN Reason: 40 unit/kg - Heparin Protocol Heparin Sodium (Porcine) (Heparin Sodium,Porcine 5,000 Unit/Ml Vial) 5,600 unit 80 unit/kg (5600 unit) IVPUSH PROTOCOL BOLUS PRN; Protocol PRN Reason: 80 unit/kg - Heparin Protocol Heparin Sodium/Sodium Chloride (Heparin Sodium,Porcine/1/2ns) 25,000 unit in 250 mls @ 0 mls/hr IVCONT .Q0M [facility]; Protocol Last Admin: 09/20/23 12:48 Dose: 12 units/kg/hr, 8.41 mls/hr Lisinopril (Lisinopril 10 Mg Tablet) 10 mg PO DAILY [facility]; Protocol Omeprazole (Omeprazole 40 Mg Capsule.Dr) 40 mg PO DAILY@0630 [facility] Ondansetron HCl (Ondansetron Hcl 4 Mg/2 Ml Vial) 4 mg IVPUSH Q8H PRN PRN Reason: Nausea and Vomiting Sodium Chloride (0.9 % Sodium Chloride Flush 3 Ml Syringe) 3 ml IVFLUSH QSHIFT [facility] Vitamin D (Cholecalciferol (Vitamin D3) 25 Mcg Tablet) 25 mcg PO DAILY [facility] Home Medications Medication Instructions Recorded Confirmed Last Taken Type amlodipine 5 mg tablet 5 mg PO DAILY 09/20/23 09/20/23 Unknown History apixaban 5 mg tablet (Eliquis) 5 mg PO BID 09/20/23 09/20/23 Unknown History cholecalciferol (vitamin D3) 25 25 mcg PO DAILY 09/20/23 09/20/23 Unknown History mcg (1,000 unit) tablet donepezil 5 mg tablet 5 mg PO BEDTIME 09/20/23 09/20/23 Unknown History lisinopril 10 mg tablet 10 mg PO DAILY 09/20/23 09/20/23 Unknown History omeprazole 40 mg capsule,delayed 40 mg PO DAILY 09/20/23 09/20/23 Unknown History release Physical Exam Vital Signs: Vital Signs: Last Vital Signs Temp 97.6 F 09/20/23 12:24 Pulse 66 09/20/23 12:31 Resp 24 H 09/20/23 12:24 BP 150/82 H 09/20/23 12:31 Pulse Ox 96 09/20/23 12:24 O2 Del Method Nasal Cannula 09/20/23 12:24 O2 Flow Rate 2 09/20/23 12:24 BMI result Body Mass Index 22.2 GENERAL APPEARANCE: in no acute distress, pleasant. NECK: no carotid bruit, mild jugular venous distention. SKIN: no suspicious lesions, warm and dry. HEART: no murmurs, irregular rate and rhythm. LUNGS: Crackles at bases. ABDOMEN: soft, nontender. EXTREMITIES: no edema. PERIPHERAL PULSES: equal. NEUROLOGIC: No gross deficits, AAO X 3 Objective Labs and Meds 09/20/23 09:30 09/20/23 09:31 Lab results: Laboratory Results - last 24 hr 09/20/23 09/20/23 09/20/23 09:30 09:31 10:23 WBC 4.8 RBC 4.65 Hgb 14.2 Hct 44.4 MCV 95.5 MCH 30.5 MCHC 32.0 RDW 14.2 Plt Count 157 L MPV 10.6 Immature Gran % (Auto) 0.0 Neut % (Auto) 64.3 Lymph % (Auto) 21.9 [place] % (Auto) 11.8 H Eos % (Auto) 1.0 Baso % (Auto) 1.0 Lymph # (Auto) 1.1 L [place] # (Auto) 0.6 Eos # (Auto) 0.1 Baso # (Auto) 0.1 Abs Immat Gran (auto) 0.00 Absolute Neuts (auto) 3.1 Absolute Nucleated RBC 0.000 Nucleated RBC % (auto) 0.0 PT 13.1 INR 1.1 APTT 30.4 Sodium 142 Potassium 5.7 H Chloride 108 Carbon Dioxide 28 Anion Gap 12 BUN 22 H Creatinine 0.99 Estim Creat Clear Calc 51.1 Estimated GFR > 60 Random Glucose 112 Lactic Acid 1.5 Calcium 9.3 Total Bilirubin 0.5 AST 26 ALT 17 Alkaline Phosphatase 84 Troponin I High Sens 2089.1 H* B-Natriuretic Peptide 2246 H Total Protein 6.7 Albumin 3.9 Lipase 21 Urine Color Urine Appearance Urine pH Ur Specific [place] Urine Protein Urine Glucose (UA) Urine Ketones Urine Blood Urine Nitrite Ur Leukocyte Esterase Urine RBC Urine WBC Ur Squamous Epith Cells Urine Bacteria Hyaline Casts Influenza Type A (PCR) NEGATIVE Influenza Type B (PCR) NEGATIVE RSV RNA Qual (PCR) NEGATIVE SARS-CoV-2 RNA (RT-PCR) NEGATIVE 09/20/23 09/20/23 10:57 12:16 WBC RBC Hgb Hct MCV MCH MCHC RDW Plt Count MPV Immature Gran % (Auto) Neut % (Auto) Lymph % (Auto) [place] % (Auto) Eos % (Auto) Baso % (Auto) Lymph # (Auto) [place] # (Auto) Eos # (Auto) Baso # (Auto) Abs Immat Gran (auto) Absolute Neuts (auto) Absolute Nucleated RBC Nucleated RBC % (auto) PT INR APTT Sodium Potassium Chloride Carbon Dioxide Anion Gap BUN Creatinine Estim Creat Clear Calc Estimated GFR Random Glucose Lactic Acid Calcium Total Bilirubin AST ALT Alkaline Phosphatase Troponin I High Sens 1648.3 H* B-Natriuretic Peptide Total Protein Albumin Lipase Urine Color Yellow Urine Appearance Clear Urine pH 5.5 Ur Specific [place] 1.025 Urine Protein 100 (2+) H Urine Glucose (UA) Negative Urine Ketones Negative Urine Blood Negative Urine Nitrite Negative Ur Leukocyte Esterase Negative Urine RBC 0-2 Urine WBC 0-5 Ur Squamous Epith Cells 0-2 Urine Bacteria None Seen Hyaline Casts 0-2 Influenza Type A (PCR) Influenza Type B (PCR) RSV RNA Qual (PCR) SARS-CoV-2 RNA (RT-PCR) Imaging Radiologist's impression: Impressions Chest X-Ray 09/20/23 09:51 IMPRESSION: 1. Blunting of the right costophrenic recess which may reflect a trace pleural effusion versus scarring. 2. Right basilar radiopacity suggesting evolving infectious inflammatory etiology. 3. Interstitial prominence. Assessment and Plan (1) Atrial fibrillation: Status: Acute (2) Acute non-ST elevation myocardial infarction (NSTEMI): Status: Acute (3) Congestive heart failure: Qualifiers: Heart failure chronicity: acute Status: Acute Plan Pleasant 88-year-old gentleman who is presenting for shortness of breath and upper back discomfort. He has ruled in for NSTEMI. He is also in congestive heart failure. EKGs not showing any dynamic changes. No obvious murmurs on examination. We will check echocardiogram to assess LV and to assess for any valvular dysfunction. Gentle diuresis with Lasix 40 mg IV daily. Heparin drip for anticoagulation for NSTEMI. Hold the apixaban further. He has not been taking it regularly. I have explained to the patient that he has presented with acute coronary syndrome at this point and management plan may involve diagnostic angiography but other option is medical management. His daughter is a nurse in pain management who was present and was involved in the discussion. They will have a discussion amongst themselves to decide which way they want to proceed. In the meantime we will treat him for NSTEMI with anticoagulation, aspirin and blood pressure control. Will review echocardiography. Thank you for allowing me to participate in the care of your patient. Please feel free to contact me if you have any questions. Procedures Date of Service Date of Service: 09/20/23
[2023-09-20] MEDS: Sodium Zirconium Cyclosilicate 10 GM POWD.PACK PO (14:29)
[2023-09-20] MEDS: 0.9 % Sodium Chloride Flush 3 ML SYRINGE IVFLUSH (16:04)
--- NOTE | 2023-09-20 20:00 | PC.NURSE ---
critical PTT called in to this RN by the lab at approx 2000
[2023-09-20 20:05] LABS: PTT Heparin Drip 121.5 SEC (53-77.9)
[2023-09-20] MEDS: Donepezil HCl 5 MG TABLET PO (21:07)
[2023-09-20] MEDS: Atorvastatin Calcium 40 MG TABLET PO (21:07)
[2023-09-20 21:16] LABS: PTT Heparin Drip 68.9 SEC (53-77.9)
[2023-09-20] MEDS: Melatonin 3 MG TABLET 6 MG PO (22:57)
[2023-09-21 06:07] LABS: Basophils Absolute Auto 0.1 X10*3/uL (0.0-0.2); Basophils Percent Auto 0.7 % (0-2); Eosinophils Absolute Auto 0.1 X10*3/uL (0.0-0.4); Eosinophils Percent Auto 0.7 % (0-4); Hematocrit 46.5 % (42.0-52.0); Hemoglobin 14.7 g/dl (14.0-18.0); Imm Gran Abs Auto 0.01 X10*3/uL (0.00-0.03); Imm Gran Pct Auto 0.1 % (0.0-0.4); Lymphocytes Absolute Auto 1.8 X10*3/uL (1.2-4.9); Lymphocytes Percent Auto 24.9 % (20-40); MANUAL DIFF FLAG NO; Mean Corpuscular HGB Conc 31.6 g/dl (31.0-36.0); Mean Corpuscular Hemoglobin 30.9 pg (27.0-33.0); Mean Corpuscular Volume 97.7 fL (80.0-98.0); Mean Platelet Volume 10.7 fL (9.4-12.4); Monocytes Absolute Auto 0.7 X10*3/uL (0.1-1.2); Monocytes Percent Auto 9.9 % (2-11); Neutrophils Absolute Auto 4.5 x10*3/uL (2.0-8.3); Neutrophils Percent Auto 63.7 % (45-73); Platelet Count 178 X10*3/uL (160-400); Red Blood Count 4.76 X10*6/uL (4.60-5.80); Red Cell Distribution Width 14.3 % (11.0-16.0); White Blood Count 7.1 X10*3/uL (4.8-10.8)
[2023-09-21 06:08] LABS: Hematocrit 46.5 % (42.0-52.0); Hemoglobin 14.6 g/dl (14.0-18.0); Mean Corpuscular HGB Conc 31.4 g/dl (31.0-36.0); Mean Corpuscular Hemoglobin 30.1 pg (27.0-33.0); Mean Corpuscular Volume 95.9 fL (80.0-98.0); Platelet Count 188 X10*3/uL (160-400); Red Blood Count 4.85 X10*6/uL (4.60-5.80); Red Cell Distribution Width 14.1 % (11.0-16.0); White Blood Count 7.1 X10*3/uL (4.8-10.8)
[2023-09-21 06:14] LABS: INTERNATIONAL NORM RATIO 1.1 (0.9-1.1)
[2023-09-21 06:16] LABS: PTT Heparin Drip 42.6 SEC (53-77.9)
[2023-09-21 06:26] LABS: B Type Natriuretic Peptide 2724 pg/mL (<100)
[2023-09-21 06:30] LABS: Alanine Aminotransferase 22 U/L (0-40); Albumin Level 4.2 g/dL (3.5-5.0); Alkaline Phosphatase 89 U/L (39-117); Anion Gap 14 (12-20); Aspartate Amino Transferase 28 U/L (5-37); Bilirubin Total 0.5 mg/dL (0.0-1.0); Blood Urea Nitrogen 32 mg/dL (9-16); Calcium 9.4 mg/dL (8.4-10.2); Carbon Dioxide 31 mmol/L (22-29); Chloride 103 mmol/L (96-108); Creatinine Clr Calc Pharmacy 39.8; Estimated Glomerular Filt Rate 54; Glucose Random 128 mg/dL (60-115); Potassium 3.9 mmol/L (3.3-5.1); Sodium 144 mmol/L (135-145)
[2023-09-21] MEDS: Heparin Sodium,Porcine 5,000 UNIT/ML VIAL 2800 UNIT IVPUSH (06:42)
[2023-09-21 07:22] VITALS: BP 162/75; PULSE 63; RESP 18; O2SAT 93
[2023-09-21] MEDS: Furosemide 40 MG/4 ML VIAL IVPUSH (07:26)
[2023-09-21] MEDS: Cholecalciferol (Vitamin D3) 25 MCG TABLET PO (07:26)
[2023-09-21] MEDS: Aspirin 81 MG TAB.CHEW PO (07:26)
[2023-09-21] MEDS: lisinopriL 10 MG TABLET PO (07:26)
[2023-09-21] MEDS: Omeprazole 40 MG CAPSULE.DR PO (07:26)
[2023-09-21] MEDS: amLODIPine Besylate 5 MG TABLET PO (07:26)
[2023-09-21] MEDS: 0.9 % Sodium Chloride Flush 3 ML SYRINGE IVFLUSH ×2 (07:32→17:17)
[2023-09-21 09:30] VITALS: BP 138/59; PULSE 55; RESP 18; O2SAT 97
--- NOTE | 2023-09-21 09:33 | PC.NURSE ---
report given to accepting unit, denies pain or discomfort, resting comfortably in bed , vss, daughter aware of transfer to room 471.
[2023-09-21 10:06] VITALS: BP 133/59; PULSE 59; RESP 20; TEMP 36.3; O2SAT 96
[2023-09-21 10:36] VITALS: BMI 19.8
[2023-09-21 10:59] VITALS: BP 126/86; PULSE 67; RESP 20; TEMP 36.2; O2SAT 96
--- NOTE | 2023-09-21 11:45 | PM.PNCARD ---
Subjective Subjective Date of Service: 09/21/23 Interval history: Seen examined at bedside. Confused today. Denying chest pain or shortness of breath Physical Exam Vital Signs: Last Vital Signs Temp 97.2 F 09/21/23 10:59 Pulse 67 09/21/23 10:59 Resp 20 09/21/23 10:59 BP 126/86 09/21/23 10:59 Pulse Ox 96 09/21/23 10:59 O2 Del Method Nasal Cannula 09/21/23 10:59 O2 Flow Rate 2 09/21/23 10:59 BMI result Body Mass Index 19.8 GENERAL APPEARANCE: in no acute distress, confused.. NECK: no carotid bruit, no jugular venous distention. SKIN: no suspicious lesions, warm and dry. HEART: no murmurs, irregular rate and rhythm. LUNGS: Clear to auscultation. ABDOMEN: soft, nontender. EXTREMITIES: no edema. PERIPHERAL PULSES: equal. NEUROLOGIC: No gross deficits, AAO X 3 Objective Labs and Meds 09/21/23 05:59 09/21/23 05:59 Lab results: Laboratory Results - last 24 hr 09/20/23 09/20/23 09/20/23 12:16 18:45 20:58 WBC RBC Hgb Hct MCV MCH MCHC RDW Plt Count MPV Immature Gran % (Auto) Neut % (Auto) Lymph % (Auto) [place] % (Auto) Eos % (Auto) Baso % (Auto) Lymph # (Auto) [place] # (Auto) Eos # (Auto) Baso # (Auto) Abs Immat Gran (auto) Absolute Neuts (auto) Absolute Nucleated RBC Nucleated RBC % (auto) PT INR aPTT Heparin Protocol 121.5 H* 68.9 D Sodium Potassium Chloride Carbon Dioxide Anion Gap BUN Creatinine Estim Creat Clear Calc Estimated GFR Random Glucose Calcium Total Bilirubin AST ALT Alkaline Phosphatase Troponin I High Sens 1648.3 H* B-Natriuretic Peptide Total Protein Albumin 09/21/23 09/21/23 09/21/23 05:14 05:59 05:59 WBC 7.1 7.1 RBC 4.85 Hgb Hct MCV MCH MCHC RDW Plt Count MPV Immature Gran % (Auto) Neut % (Auto) Lymph % (Auto) [place] % (Auto) Eos % (Auto) Baso % (Auto) Lymph # (Auto) [place] # (Auto) Eos # (Auto) Baso # (Auto) Abs Immat Gran (auto) Absolute Neuts (auto) Absolute Nucleated RBC Nucleated RBC % (auto) PT INR aPTT Heparin Protocol 42.0 L D Sodium Potassium Chloride Carbon Dioxide Anion Gap BUN Creatinine Estim Creat Clear Calc Estimated GFR Random Glucose Calcium Total Bilirubin AST ALT Alkaline Phosphatase Troponin I High Sens B-Natriuretic Peptide Total Protein Albumin 09/21/23 09/21/23 09/21/23 05:59 05:59 05:59 WBC RBC 4.76 Hgb 14.6 14.7 Hct 46.5 46.5 MCV 95.9 MCH MCHC RDW Plt Count MPV Immature Gran % (Auto) Neut % (Auto) Lymph % (Auto) [place] % (Auto) Eos % (Auto) Baso % (Auto) Lymph # (Auto) [place] # (Auto) Eos # (Auto) Baso # (Auto) Abs Immat Gran (auto) Absolute Neuts (auto) Absolute Nucleated RBC Nucleated RBC % (auto) PT INR aPTT Heparin Protocol Sodium Potassium Chloride Carbon Dioxide Anion Gap BUN Creatinine Estim Creat Clear Calc Estimated GFR Random Glucose Calcium Total Bilirubin AST ALT Alkaline Phosphatase Troponin I High Sens B-Natriuretic Peptide Total Protein Albumin 09/21/23 09/21/23 09/21/23 05:59 05:59 05:59 WBC RBC Hgb Hct MCV 97.7 MCH 30.1 30.9 MCHC 31.4 31.6 RDW 14.1 Plt Count MPV Immature Gran % (Auto) Neut % (Auto) Lymph % (Auto) [place] % (Auto) Eos % (Auto) Baso % (Auto) Lymph # (Auto) [place] # (Auto) Eos # (Auto) Baso # (Auto) Abs Immat Gran (auto) Absolute Neuts (auto) Absolute Nucleated RBC Nucleated RBC % (auto) PT INR aPTT Heparin Protocol Sodium Potassium Chloride Carbon Dioxide Anion Gap BUN Creatinine Estim Creat Clear Calc Estimated GFR Random Glucose Calcium Total Bilirubin AST ALT Alkaline Phosphatase Troponin I High Sens B-Natriuretic Peptide Total Protein Albumin 09/21/23 09/21/23 09/21/23 05:59 05:59 05:59 WBC RBC Hgb Hct MCV MCH MCHC RDW 14.3 Plt Count 188 178 MPV 11.0 10.7 Immature Gran % (Auto) 0.1 Neut % (Auto) 63.7 Lymph % (Auto) 24.9 [place] % (Auto) 9.9 Eos % (Auto) 0.7 Baso % (Auto) 0.7 Lymph # (Auto) 1.8 [place] # (Auto) 0.7 Eos # (Auto) 0.1 Baso # (Auto) 0.1 Abs Immat Gran (auto) 0.01 Absolute Neuts (auto) 4.5 Absolute Nucleated RBC 0.000 Nucleated RBC % (auto) PT INR aPTT Heparin Protocol Sodium Potassium Chloride Carbon Dioxide Anion Gap BUN Creatinine Estim Creat Clear Calc Estimated GFR Random Glucose Calcium Total Bilirubin AST ALT Alkaline Phosphatase Troponin I High Sens B-Natriuretic Peptide Total Protein Albumin 09/21/23 09/21/23 05:59 05:59 WBC RBC Hgb Hct MCV MCH MCHC RDW Plt Count MPV Immature Gran % (Auto) Neut % (Auto) Lymph % (Auto) [place] % (Auto) Eos % (Auto) Baso % (Auto) Lymph # (Auto) [place] # (Auto) Eos # (Auto) Baso # (Auto) Abs Immat Gran (auto) Absolute Neuts (auto) Absolute Nucleated RBC 0.000 Nucleated RBC % (auto) 0.0 0.0 PT 13.0 INR 1.1 aPTT Heparin Protocol 42.6 L Sodium 144 Potassium 3.9 D Chloride 103 Carbon Dioxide 31 H Anion Gap 14 BUN 32 H Creatinine 1.27 Estim Creat Clear Calc 39.8 Estimated GFR 54 Random Glucose 128 H Calcium 9.4 Total Bilirubin 0.5 AST 28 ALT 22 Alkaline Phosphatase 89 Troponin I High Sens 1818.0 H* B-Natriuretic Peptide 2724 H Total Protein 7.0 Albumin 4.2 Progress Note: A&P Assessment and plan (1) Congestive heart failure: Status: Acute (2) Acute non-ST elevation myocardial infarction (NSTEMI): Status: Acute (3) Ischemic cardiomyopathy: Status: Acute Plan 88-year-old gentleman with permanent atrial fibrillation who was on Eliquis presenting with shortness of breath and upper back discomfort. He ruled in for NSTEMI. ECHO has shown anterior wall motion abnormality in the LAD territory with EF 30 35%. Diuresed and appears to be euvolemic. Can be changed to oral diuretics 40 mg daily from tomorrow. Increase lisinopril to 20 mg daily to control blood pressure better. On heparin drip for 48 hours for NSTEMI. Detailed discussion was done with the patient's family and they opted for medical management given his advanced age and dementia. I think once heparin finishes he should be restarted on Eliquis and be discharged on Eliquis and aspirin. He will follow-up with Dr. Root at [facility]. Thank you for allowing me to participate in the care of your patient. Please feel free to contact me if you have any questions. Time Spent With Patient Time: Total time managing care of this patient today ____ minutes. Progress Note: Quality Stroke Does the patient have a stroke diagnosis?: No Procedures Date of Service Date of Service: 09/21/23
--- NOTE | 2023-09-21 14:59 | P.PNIM_ITS ---
Subjective Subjective Date of Service: 09/21/23 Interval History: seen and examined this morning follow up for NSEMI, CHF confused this am (has dementia), denies chest pain or sob Review of Systems Review of Systems: Yes all other systems are reviewed and are negative Cardiovascular Cardiovascular: Denies chest pain and Denies dyspnea Respiratory Respiratory: Denies dyspnea Physical Exam 2 Vital Signs: Vital Signs: Last Vital Signs Temp 97.2 F 09/21/23 10:59 Pulse 67 09/21/23 10:59 Resp 20 09/21/23 10:59 BP 126/86 09/21/23 10:59 Pulse Ox 96 09/21/23 10:59 O2 Del Method Nasal Cannula 09/21/23 10:59 O2 Flow Rate 2 09/21/23 10:59 BMI result Body Mass Index 19.8 Const: General: cooperative, comfortable, alert and awake Nutritional Appearance: thin Orientation/consciousness: oriented to person Resp: Effort & Inspection: normal respiratory effort, able to speak in complete sentences, no respiratory distress and no use of accessory muscles Cardio: Rate: regular rate GI: Inspection: No distended Palpation (GI): Soft to palpation Neuro: Other: grossly nonfocal General: oriented to person and moves all extremities Extrem: General: Yes no pedal edema Objective Data Active Medications Acetaminophen (Acetaminophen 325 Mg Tablet) 650 mg PO Q6H PRN PRN Reason: Pain, Mild (Pain Scale 1-3) Amlodipine Besylate (Amlodipine Besylate 5 Mg Tablet) 5 mg PO DAILY [facility]; Protocol Last Admin: 09/21/23 07:26 Dose: 5 mg Documented By: MABEL Aspirin (Aspirin 81 Mg Tab.Chew) 81 mg PO DAILY [facility] Last Admin: 09/21/23 07:26 Dose: 81 mg Documented By: MABEL Atorvastatin Calcium (Atorvastatin Calcium 40 Mg Tablet) 40 mg PO BEDTIME [facility]ELSEY Last Admin: 09/20/23 21:07 Dose: 40 mg Documented By: WILFREDO Donepezil HCl (Donepezil Hcl 5 Mg Tablet) 5 mg PO BEDTIME [facility] Last Admin: 09/20/23 21:07 Dose: 5 mg Documented By: WILFREDO Furosemide (Furosemide 40 Mg Tablet) 40 mg PO DAILY [facility]; Protocol Heparin Sodium (Porcine) (Heparin Sodium,Porcine 5,000 Unit/Ml Vial) 2,800 unit 40 unit/kg (2800 unit) IVPUSH PROTOCOL BOLUS PRN; Protocol PRN Reason: 40 unit/kg - Heparin Protocol Last Admin: 09/21/23 06:42 Dose: 2,800 unit Documented By: WILFREDO Heparin Sodium (Porcine) (Heparin Sodium,Porcine 5,000 Unit/Ml Vial) 5,600 unit 80 unit/kg (5600 unit) IVPUSH PROTOCOL BOLUS PRN; Protocol PRN Reason: 80 unit/kg - Heparin Protocol Heparin Sodium/Sodium Chloride (Heparin Sodium,Porcine/1/2ns) 25,000 unit in 250 mls @ 0 mls/hr IVCONT .Q0M [facility]; Protocol Last Titration: 09/21/23 14:55 Dose: 8 units/kg/hr, 5.61 mls/hr Documented By: NASEEM Co-signed By: MICHEL Lisinopril (Lisinopril 20 Mg Tablet) 20 mg PO DAILY [facility]; Protocol Last Admin: 09/21/23 09:20 Dose: Not Given Documented By: MABEL Non-Admin Reason: Patient Refused Melatonin (Melatonin 3 Mg Tablet) 6 mg PO BEDTIME PRN PRN Reason: Insomnia Last Admin: 09/20/23 22:57 Dose: 6 mg Documented By: WILFREDO Omeprazole (Omeprazole 40 Mg Capsule.) 40 mg PO DAILY@0630 [facility] Last Admin: 09/21/23 07:26 Dose: 40 mg Documented By: MABEL Ondansetron HCl (Ondansetron Hcl 4 Mg/2 Ml Vial) 4 mg IVPUSH Q8H PRN PRN Reason: Nausea and Vomiting Sodium Chloride (0.9 % Sodium Chloride Flush 3 Ml Syringe) 3 ml IVFLUSH QSHIFT [facility] Last Admin: 09/21/23 07:32 Dose: 3 ml Documented By: MABEL Vitamin D (Cholecalciferol (Vitamin D3) 25 Mcg Tablet) 25 mcg PO DAILY [facility] Last Admin: 09/21/23 07:26 Dose: 25 mcg Documented By: MABEL Labs 09/21/23 05:59 09/21/23 05:59 Labs: Laboratory Results - last 24 hr 09/20/23 09/20/23 09/21/23 18:45 20:58 05:14 MCV MCH MCHC RDW Plt Count MPV Immature Gran % (Auto) Neut % (Auto) Lymph % (Auto) [place] % (Auto) Eos % (Auto) Baso % (Auto) Lymph # (Auto) [place] # (Auto) Eos # (Auto) Baso # (Auto) Abs Immat Gran (auto) Absolute Neuts (auto) Absolute Nucleated RBC Nucleated RBC % (auto) PT INR aPTT Heparin Protocol 121.5 H* 68.9 D 42.0 L D Anion Gap Estim Creat Clear Calc Estimated GFR Random Glucose Calcium Total Bilirubin AST ALT Alkaline Phosphatase Troponin I High Sens B-Natriuretic Peptide Total Protein Albumin 09/21/23 09/21/23 09/21/23 05:59 05:59 05:59 MCV 95.9 97.7 MCH 30.1 30.9 MCHC 31.4 RDW Plt Count MPV Immature Gran % (Auto) Neut % (Auto) Lymph % (Auto) [place] % (Auto) Eos % (Auto) Baso % (Auto) Lymph # (Auto) [place] # (Auto) Eos # (Auto) Baso # (Auto) Abs Immat Gran (auto) Absolute Neuts (auto) Absolute Nucleated RBC Nucleated RBC % (auto) PT INR aPTT Heparin Protocol Anion Gap Estim Creat Clear Calc Estimated GFR Random Glucose Calcium Total Bilirubin AST ALT Alkaline Phosphatase Troponin I High Sens B-Natriuretic Peptide Total Protein Albumin 09/21/23 09/21/23 09/21/23 05:59 05:59 05:59 MCV MCH MCHC 31.6 RDW 14.1 14.3 Plt Count 188 178 MPV 11.0 Immature Gran % (Auto) Neut % (Auto) Lymph % (Auto) [place] % (Auto) Eos % (Auto) Baso % (Auto) Lymph # (Auto) [place] # (Auto) Eos # (Auto) Baso # (Auto) Abs Immat Gran (auto) Absolute Neuts (auto) Absolute Nucleated RBC Nucleated RBC % (auto) PT INR aPTT Heparin Protocol Anion Gap Estim Creat Clear Calc Estimated GFR Random Glucose Calcium Total Bilirubin AST ALT Alkaline Phosphatase Troponin I High Sens B-Natriuretic Peptide Total Protein Albumin 09/21/23 09/21/23 09/21/23 05:59 05:59 05:59 MCV MCH MCHC RDW Plt Count MPV 10.7 Immature Gran % (Auto) 0.1 Neut % (Auto) 63.7 Lymph % (Auto) 24.9 [place] % (Auto) 9.9 Eos % (Auto) 0.7 Baso % (Auto) 0.7 Lymph # (Auto) 1.8 [place] # (Auto) 0.7 Eos # (Auto) 0.1 Baso # (Auto) 0.1 Abs Immat Gran (auto) 0.01 Absolute Neuts (auto) 4.5 Absolute Nucleated RBC 0.000 0.000 Nucleated RBC % (auto) 0.0 0.0 PT 13.0 INR 1.1 aPTT Heparin Protocol 42.6 L Anion Gap 14 Estim Creat Clear Calc 39.8 Estimated GFR 54 Random Glucose 128 H Calcium 9.4 Total Bilirubin 0.5 AST 28 ALT 22 Alkaline Phosphatase 89 Troponin I High Sens 1818.0 H* B-Natriuretic Peptide 2724 H Total Protein 7.0 Albumin 4.2 09/21/23 12:30 MCV MCH MCHC RDW Plt Count MPV Immature Gran % (Auto) Neut % (Auto) Lymph % (Auto) [place] % (Auto) Eos % (Auto) Baso % (Auto) Lymph # (Auto) [place] # (Auto) Eos # (Auto) Baso # (Auto) Abs Immat Gran (auto) Absolute Neuts (auto) Absolute Nucleated RBC Nucleated RBC % (auto) PT INR aPTT Heparin Protocol 89.0 H D Anion Gap Estim Creat Clear Calc Estimated GFR Random Glucose Calcium Total Bilirubin AST ALT Alkaline Phosphatase Troponin I High Sens B-Natriuretic Peptide Total Protein Albumin Microbiology Microbiology Results: Microbiology 09/20/23 09:31 Blood Culture - Preliminary Blood - Venous No growth after 24 hours. 09/20/23 09:30 Blood Culture - Preliminary Blood - Venous No growth after 24 hours. Assessment and Plan (1) Acute non-ST elevation myocardial infarction (NSTEMI): Status: Acute (2) Congestive heart failure: Status: Acute (3) Ischemic cardiomyopathy: Status: Acute Plan 88 year old man with hx of HTN, GERD, dementia admitted with NSTEMI and acute CHF NSTEMI no cp or sob continue IV heparin drip x 48 hours then resume Eliquis and discharge with Eliquis and aspirin echo with anterior wall motion abnormality in the LAD territory with EF of 30- 35% asa, statin cardiology following patients is DNR and is not interested in aggressive tx that may include cardiac cath, would prefer conservative management outpatient follow up with Dr Root at [facility] HFrEF, ischemic cardiomyopathy initially treated with IV lasix Echo as above although BNP still elevated, SCr trending up and appears euvlemic. cardiology rec to start po lasix 40 daily monitor daily weights intake and output Paroxysmal afib/flutter on Eliquis at home, hold for IV heparin not on rate control medication Hypertension continue Norvasc, lisinopril increased GERD continue PPI dementia continue aricept DVT prophylaxis with IV heparin for NSTEMI DNR/DNI Patient requires ongoing inpatient stay for treatment of NSTEMI requiring IV heparin and close monitoring as well as specialty consultation. Due to patient's age and other comorbidities he is at high risk for decompensation. Quality Stroke Does the patient have a stroke diagnosis?: No VTE Prior VTE?: No VTE Risk Level:: Medical - moderate - high VTE Device Contraindication: Treatment Not Indicated VTE Drug Contraindication: N/A - Med Ordered
[2023-09-21] MEDS: Heparin Sodium,Porcine/1/2NS 25,000 UNIT/250 ML IV.SOLN 5.61 UNIT IVCONT (15:00)
[2023-09-21 15:18] VITALS: BP 126/61; PULSE 68; RESP 20; TEMP 36.3; O2SAT 98
--- NOTE | 2023-09-21 16:09 | MHC.CM.PN ---
IMM 09/20. Pt self-care, lives at home with his granddaughter and her . Pts grandchild or daughter will transport him home. Pts daughter is his HCP, copy requested, daughter to bring in copy tomorrow. PCP: Dr. Kellie Guerrero
[2023-09-21 19:58] VITALS: BP 120/62; PULSE 62; RESP 18; TEMP 36.2; O2SAT 97
[2023-09-21] MEDS: Donepezil HCl 5 MG TABLET PO (20:03)
[2023-09-21] MEDS: Atorvastatin Calcium 40 MG TABLET PO (20:03)
[2023-09-21] MEDS: Melatonin 3 MG TABLET 6 MG PO (21:19)
[2023-09-21 21:24] LABS: PTT Heparin Drip 54.6 SEC (53-77.9)
[2023-09-22] VITALS (7 sets, daily range): BP systolic 114–159; BP diastolic 46–68; PULSE 58–79; RESP 16–20; TEMP 36–36.8; O2SAT 95–100
[2023-09-22 03:10] LABS: PTT Heparin Drip 59.3 SEC (53-77.9)
[2023-09-22 07:18] LABS: Hematocrit 43.8 % (42.0-52.0); Hemoglobin 13.9 g/dl (14.0-18.0); Mean Corpuscular HGB Conc 31.7 g/dl (31.0-36.0); Mean Corpuscular Hemoglobin 30.7 pg (27.0-33.0); Mean Corpuscular Volume 96.7 fL (80.0-98.0); Mean Platelet Volume 11.1 fL (9.4-12.4); Platelet Count 171 X10*3/uL (160-400); Red Blood Count 4.53 X10*6/uL (4.60-5.80); Red Cell Distribution Width 14.3 % (11.0-16.0); White Blood Count 5.5 X10*3/uL (4.8-10.8)
[2023-09-22 07:25] LABS: PTT Heparin Drip 54.4 SEC (53-77.9)
[2023-09-22 07:39] LABS: Anion Gap 11 (12-20); Blood Urea Nitrogen 26 mg/dL (9-16); Calcium 9.1 mg/dL (8.4-10.2); Carbon Dioxide 34 mmol/L (22-29); Chloride 102 mmol/L (96-108); Creatinine Clr Calc Pharmacy 43.4; Estimated Glomerular Filt Rate > 60; Glucose Random 115 mg/dL (60-115); Potassium 3.9 mmol/L (3.3-5.1); Sodium 143 mmol/L (135-145)
[2023-09-22] MEDS: amLODIPine Besylate 5 MG TABLET PO (10:13)
[2023-09-22] MEDS: lisinopriL 20 MG TABLET PO (10:13)
[2023-09-22] MEDS: Aspirin 81 MG TAB.CHEW PO (10:13)
[2023-09-22] MEDS: Furosemide 40 MG TABLET PO (10:13)
[2023-09-22] MEDS: 0.9 % Sodium Chloride Flush 3 ML SYRINGE IVFLUSH (10:14)
[2023-09-22] MEDS: Cholecalciferol (Vitamin D3) 25 MCG TABLET PO (10:14)
--- NOTE | 2023-09-22 10:46 | PM.PNCARD ---
Subjective Subjective Date of Service: 09/22/23 Interval history: Seen and examined at bedside. Saying that he has a little short of breath today. Physical Exam Vital Signs: Last Vital Signs Temp 96.8 F 09/22/23 08:00 Pulse 58 09/22/23 08:00 Resp 16 09/22/23 08:00 BP 152/62 H 09/22/23 08:00 Pulse Ox 100 09/22/23 08:00 O2 Del Method Nasal Cannula 09/22/23 08:00 O2 Flow Rate 2 09/22/23 08:00 BMI result Body Mass Index 19.8 GENERAL APPEARANCE: in no acute distress, confused.. NECK: no carotid bruit, + jugular venous distention. SKIN: no suspicious lesions, warm and dry. HEART: no murmurs, irregular rate and rhythm. LUNGS: Clear to auscultation. ABDOMEN: soft, nontender. EXTREMITIES: no edema. PERIPHERAL PULSES: equal. NEUROLOGIC: No gross deficits, AAO X 3 Objective Labs and Meds 09/22/23 06:45 09/22/23 06:45 Lab results: Laboratory Results - last 24 hr 09/21/23 09/21/23 09/22/23 12:30 21:04 02:56 WBC RBC Hgb Hct MCV MCH MCHC RDW Plt Count MPV Absolute Nucleated RBC Nucleated RBC % (auto) aPTT Heparin Protocol 89.0 H D 54.6 D 59.3 Sodium Potassium Chloride Carbon Dioxide Anion Gap BUN Creatinine Estim Creat Clear Calc Estimated GFR Random Glucose Calcium 09/22/23 06:45 WBC 5.5 RBC 4.53 L Hgb 13.9 L Hct 43.8 MCV 96.7 MCH 30.7 MCHC 31.7 RDW 14.3 Plt Count 171 MPV 11.1 Absolute Nucleated RBC 0.000 Nucleated RBC % (auto) 0.0 aPTT Heparin Protocol 54.4 Sodium 143 Potassium 3.9 Chloride 102 Carbon Dioxide 34 H Anion Gap 11 L BUN 26 H Creatinine 1.04 Estim Creat Clear Calc 43.4 Estimated GFR > 60 Random Glucose 115 Calcium 9.1 Progress Note: A&P Assessment and plan (1) Ischemic cardiomyopathy: Status: Acute (2) Atrial fibrillation: Status: Acute (3) Congestive heart failure: Status: Acute (4) Acute non-ST elevation myocardial infarction (NSTEMI): Status: Acute Plan 88-year-old gentleman with dementia and permanent atrial fibrillation who presented with upper back discomfort and shortness of breath. He ruled in for NSTEMI and has congestive heart failure. Echocardiography has shown LAD territory wall motion abnormality with ejection fraction 30 35%. Family and patient did not wish to do any aggressive procedure and was conservatively treated with 48 hours of heparin drip. He is on baby aspirin. Eliquis is being resumed. In terms of congestive heart failure his blood pressure continues to be mildly elevated. He has mild volume overload. He will get 40 mg of Lasix today. He will continue 40 mg p.o. Lasix daily otherwise. Lisinopril dose was increased to 20 mg yesterday. Monitor blood pressure closely and titrate lisinopril or amlodipine. Thank you for allowing me to participate in the care of your patient. Please feel free to contact me if you have any questions. Time Spent With Patient Time: Total time managing care of this patient today ____ minutes. Progress Note: Quality Stroke Does the patient have a stroke diagnosis?: No Procedures Date of Service Date of Service: 09/22/23
--- NOTE | 2023-09-22 11:41 | MHC.CM.PN ---
Pt is not yet medically cleared for DC. He is receiving IV Heparin and being monitored. DC plan is home with family support. CM to follow and assist in DC plan.
--- NOTE | 2023-09-22 12:52 | P.PNIM_ITS ---
Subjective Subjective Date of Service: 09/22/23 Interval History: seen and examined this morning follow up for NSTEMI, CHF denies sob to me but tells the advertising campaign manager that he is winded today no chest pain Review of Systems Review of Systems: Yes all other systems are reviewed and are negative Constitutional Constitutional: Denies chills and Denies fever(s) Cardiovascular Cardiovascular: Denies chest pain and Denies palpitations Respiratory Respiratory: Denies cough Endocrine Endocrine: Denies palpitations Physical Exam 2 Vital Signs: Vital Signs: Last Vital Signs Temp 97 F 09/22/23 11:16 Pulse 65 09/22/23 11:16 Resp 16 09/22/23 11:16 BP 147/68 H 09/22/23 11:16 Pulse Ox 98 09/22/23 11:16 O2 Del Method Nasal Cannula 09/22/23 11:16 O2 Flow Rate 2 09/22/23 11:16 BMI result Body Mass Index 19.8 Const: General: cooperative, comfortable, alert and awake Nutritional Appearance: thin Orientation/consciousness: patient oriented x3 Resp: Effort & Inspection: normal respiratory effort, able to speak in complete sentences, no respiratory distress and no use of accessory muscles Cardio: Rate: regular rate GI: Inspection: No distended Palpation (GI): Soft to palpation and nontender Neuro: Other: grossly nonfocal General: patient oriented x3 and moves all extremities Cranial nerves: Y es CN's II-XII intact bilaterally Extrem: General: Yes no pedal edema Objective Data Active Medications Acetaminophen (Acetaminophen 325 Mg Tablet) 650 mg PO Q6H PRN PRN Reason: Pain, Mild (Pain Scale 1-3) Amlodipine Besylate (Amlodipine Besylate 5 Mg Tablet) 5 mg PO DAILY [facility]; Protocol Last Admin: 09/22/23 10:13 Dose: 5 mg Documented By: KYLE Aspirin (Aspirin 81 Mg Tab.Chew) 81 mg PO DAILY [facility] Last Admin: 09/22/23 10:13 Dose: 81 mg Documented By: KYLE Atorvastatin Calcium (Atorvastatin Calcium 40 Mg Tablet) 40 mg PO BEDTIME [facility] Last Admin: 09/21/23 20:03 Dose: 40 mg Documented By: SUMA Donepezil HCl (Donepezil Hcl 5 Mg Tablet) 5 mg PO BEDTIME [facility] Last Admin: 09/21/23 20:03 Dose: 5 mg Documented By: SUMA Furosemide (Furosemide 40 Mg Tablet) 40 mg PO DAILY [facility]; Protocol Last Admin: 09/22/23 10:13 Dose: 40 mg Documented By: KYLE Heparin Sodium (Porcine) (Heparin Sodium,Porcine 5,000 Unit/Ml Vial) 2,800 unit 40 unit/kg (2800 unit) IVPUSH PROTOCOL BOLUS PRN; Protocol PRN Reason: 40 unit/kg - Heparin Protocol Last Admin: 09/21/23 06:42 Dose: 2,800 unit Documented By: WILFREDO Heparin Sodium (Porcine) (Heparin Sodium,Porcine 5,000 Unit/Ml Vial) 5,600 unit 80 unit/kg (5600 unit) IVPUSH PROTOCOL BOLUS PRN; Protocol PRN Reason: 80 unit/kg - Heparin Protocol Lisinopril (Lisinopril 20 Mg Tablet) 20 mg PO DAILY [facility]; Protocol Last Admin: 09/22/23 10:13 Dose: 20 mg Documented By: KYLE Melatonin (Melatonin 3 Mg Tablet) 6 mg PO BEDTIME PRN PRN Reason: Insomnia Last Admin: 09/21/23 21:19 Dose: 6 mg Documented By: SUMA Omeprazole (Omeprazole 40 Mg Capsule.Dr) 40 mg PO DAILY@0630 [facility] Last Admin: 09/22/23 06:14 Dose: Not Given Documented By: SUMA Non-Admin Reason: Patient Refused Ondansetron HCl (Ondansetron Hcl 4 Mg/2 Ml Vial) 4 mg IVPUSH Q8H PRN PRN Reason: Nausea and Vomiting Sodium Chloride (0.9 % Sodium Chloride Flush 3 Ml Syringe) 3 ml IVFLUSH QSHIFT [facility] Last Admin: 09/22/23 10:14 Dose: 3 ml Documented By: KYLE Vitamin D (Cholecalciferol (Vitamin D3) 25 Mcg Tablet) 25 mcg PO DAILY [facility] Last Admin: 09/22/23 10:14 Dose: 25 mcg Documented By: KYLE Labs 09/22/23 06:45 09/22/23 06:45 Labs: Laboratory Results - last 24 hr 09/21/23 09/21/23 09/22/23 12:30 21:04 02:56 MCV MCH MCHC RDW Plt Count MPV Absolute Nucleated RBC Nucleated RBC % (auto) aPTT Heparin Protocol 89.0 H D 54.6 D 59.3 Anion Gap Estim Creat Clear Calc Estimated GFR Random Glucose Calcium 09/22/23 06:45 MCV 96.7 MCH 30.7 MCHC 31.7 RDW 14.3 Plt Count 171 MPV 11.1 Absolute Nucleated RBC 0.000 Nucleated RBC % (auto) 0.0 aPTT Heparin Protocol 54.4 Anion Gap 11 L Estim Creat Clear Calc 43.4 Estimated GFR > 60 Random Glucose 115 Calcium 9.1 Microbiology Microbiology Results: Microbiology 09/20/23 09:31 Blood Culture - Preliminary Blood - Venous No growth after 48 hours. 09/20/23 09:30 Blood Culture - Preliminary Blood - Venous No growth after 48 hours. Assessment and Plan (1) Congestive heart failure: Status: Acute (2) Acute non-ST elevation myocardial infarction (NSTEMI): Status: Acute Plan 88 year old man with hx of HTN, GERD, dementia admitted with NSTEMI and acute CHF NSTEMI no cp or sob s/p IV heparin drip x 48 hours, will resume Eliquis this evening and discharge with Eliquis and aspirin echo with anterior wall motion abnormality in the LAD territory with EF of 30- 35% asa, statin cardiology following, plan for medical management outpatient follow up with Dr Root at [facility] Cardiology acute respiratory failure with hypoxia due to HFrEF initially treated with IV lasix, transitioned to po lasix starting today. attempted to wean oxygen and o2 sat fell to 86-88% on room air will resume IV lasix Echo as above monitor daily weights intake and output cardiology following Paroxysmal afib/flutter on Eliquis at home, held for IV heparin, will resume eliquis this everning not on rate control medication Hypertension continue Norvasc, lisinopril increased GERD continue PPI dementia continue aricept DVT prophylaxis eliquis DNR/DNI attending - dr. marin Patient requires ongoing inpatient stay for treatment of NSTEMI requiring IV heparin and close monitoring as well as specialty consultation. Due to patient's age and other comorbidities he is at high risk for decompensation. Quality Stroke Does the patient have a stroke diagnosis?: No VTE Prior VTE?: No VTE Risk Level:: Medical - moderate - high VTE Device Contraindication: Treatment Not Indicated VTE Drug Contraindication: N/A - Med Ordered
[2023-09-22] MEDS: Furosemide 40 MG/4 ML VIAL IVPUSH (13:36)
[2023-09-22] MEDS: Donepezil HCl 5 MG TABLET PO (19:37)
[2023-09-22] MEDS: Melatonin 3 MG TABLET 6 MG PO (19:37)
[2023-09-22] MEDS: Atorvastatin Calcium 40 MG TABLET PO (19:37)
[2023-09-22] MEDS: Apixaban 5 MG TABLET PO (19:37)
[2023-09-23] MEDS: 0.9 % Sodium Chloride Flush 3 ML SYRINGE IVFLUSH ×2 (00:56→09:20)
[2023-09-23 02:43] VITALS: BP 148/63; PULSE 84; RESP 18; TEMP 36.6; O2SAT 98
[2023-09-23 05:56] VITALS: BMI 19.7
[2023-09-23] MEDS: Omeprazole 40 MG CAPSULE.DR PO (05:58)
[2023-09-23 08:00] VITALS: BP 143/70; PULSE 67; RESP 18; TEMP 37.1; O2SAT 97
[2023-09-23] MEDS: Apixaban 5 MG TABLET PO (09:18)
[2023-09-23] MEDS: Cholecalciferol (Vitamin D3) 25 MCG TABLET PO (09:19)
[2023-09-23] MEDS: amLODIPine Besylate 5 MG TABLET PO (09:19)
[2023-09-23] MEDS: lisinopriL 20 MG TABLET PO (09:19)
[2023-09-23] MEDS: Aspirin 81 MG TAB.CHEW PO (09:19)
[2023-09-23] MEDS: Furosemide 40 MG/4 ML VIAL IVPUSH (09:20)
--- NOTE | 2023-09-23 09:51 | P.DS_ITS ---
DS: Providers Provider Date of Service: 09/23/23 Date of admission: 09/20/23 14:02 Primary care physician: Kellie Guerrero MD Consults: 09/20/23 11:13 Consult to Cardiology Stat Consulting Provider: [facility] Cardiovascular Services Reason for consultation: SOB, BOTELLO, fatigue x3 days, elevated troponin and BNP Has provider been notified: Yes 09/20/23 14:04 Consult to Cardiology Routine Consulting Provider: [facility] [place] Cardiovascular Services Reason for consultation: nstemi 09/21/23 13:21 Consult for Sitter Routine Reason for consultation: confusion Has provider been notified: No DS: Diagnosis Discharge Diagnosis (1) Ischemic cardiomyopathy: Status: Acute (2) Atrial fibrillation: Status: Acute (3) Congestive heart failure: Status: Acute (4) Acute non-ST elevation myocardial infarction (NSTEMI): Status: Acute DS: Summary Hospital Course Hospital Course: History and physical as per admitting provider. 80-year-old man presented to ER with complaints of shortness of breath and back pain that started yesterday. He woke up this morning and was still having some mild symptoms of back pain and trouble breathing and his daughter decided to call the ambulance. Patient has a history of dementia but is mostly independent, lives with family members. He denies chest pain, shortness for breath, nausea, vomiting, diarrhea, fever, chills, recent travel at this time. In the ER initial troponin was 2089, BNP 2246, EKG showing atrial flutter with variable AV block and possible anterior infarct, elevated blood pressure reading an elevated potassium 5.7. Chest x-ray showing right basilar radiopacity suggesting involving infectious inflammatory etiology although patient has no white blood cell count or leukocytosis. In the ER he was started on IV heparin, given nitroglycerin topically, full-dose aspirin, Lokelma for hyperkalemia, IV Lasix. Plan is to admit patient for further management and treatment of acute NSTEMI and acute congestive heart failure. 88-year-old man treated for NSTEMI, acute respiratory failure with hypoxia secondary to heart failure with reduced ejection fraction. Patient was treated with 48 hours of IV heparin, his Eliquis was resumed. He was started on aspirin and statin. He was seen and evaluated by Cardiology. The patient and family wanted conservative management therefore no plan for cardiac catheterization. Patient was also treated for heart failure with IV Lasix, transitioned to oral Lasix and we will continue 40 mg daily at home. Echocardiogram showed EF of 30- 35% with evidence of regional wall motion abnormalities. Plans to discharge home with daughter. Patient did family are in agreement. Paroxysmal atrial fibrillation. Continue Eliquis Hypertension. Continue Norvasc and lisinopril GERD. Continue PPI Dementia. Continue Aricept Time Attestation Discharge Coordination Time (in mins): 45 Quality: Safe Use of Opioids Does Pt have an Active Cancer Diagnosis on the Problem List?: No Quality: Stroke Does the patient have a stroke diagnosis?: No Physical Exam Vital Signs: Vital Signs: Last Vital Signs Temp 98.8 F 09/23/23 08:00 Pulse 67 09/23/23 08:00 Resp 18 09/23/23 08:00 BP 143/70 H 09/23/23 08:00 Pulse Ox 97 09/23/23 08:00 O2 Del Method Nasal Cannula 09/23/23 08:00 O2 Flow Rate 1 09/23/23 08:00 BMI result Body Mass Index 19.7 Appearing in no acute distress head is normocephalic atraumatic eyes pupils are PERRLA sclera is anicteric mouth throat mucous membranes are intact and moist neck is supple no lymphadenopathy, no JVD noted lung sounds are clear to auscultation heart regular rate rhythm, clear S1, S2 positive bowel sounds, abdomen is soft, nontender neuro patient is alert x3, no focal deficits DS: Data Data Completed and Pending Labs on day of discharge: Preliminary micro results at discharge 09/20/23 09:31 Blood Culture - Preliminary Blood - Venous No growth after 48 hours. 09/20/23 09:30 Blood Culture - Preliminary Blood - Venous No growth after 48 hours. Discharge Plan Discharge Anticipated Discharge Date/Time: 09/23/23 09:47 Patient Disposition: Home, Self-Care Discharge Diagnosis: NSTEMI Heart failure with reduced ejection fraction Acute respiratory failure with hypoxia Referrals: Kellie Guerrero MD [Primary Care Provider] - 1 Week Jeff Murray MD [Physician] - None Discharge Medications: New atorvastatin 40 mg Tablet 40 mg PO BEDTIME Qty: 30 0RF aspirin 81 mg Tablet,Chewable 81 mg PO DAILY Qty: 30 0RF furosemide [Lasix] 40 mg tablet 40 mg PO DAILY Qty: 30 0RF Continued donepezil 5 mg tablet 5 mg PO BEDTIME amlodipine 5 mg tablet 5 mg PO DAILY omeprazole 40 mg capsule,delayed release(DR/EC) 40 mg PO DAILY lisinopril 10 mg Tablet 10 mg PO DAILY cholecalciferol (vitamin D3) 25 mcg (1,000 unit) Tablet 25 mcg PO DAILY Eliquis 5 mg tablet 5 mg PO BID Discharge Orders: Discharge Order (Routine); Ordered 09/23/23 Ordered By: Marie Lozano Diet: Advance to usual diet Activity on Discharge: As tolerated Stand Alone Forms: Patient Portal Discharge page Care Plan Goals: Take all medications as prescribed Health Concerns: NSTEMI Heart failure with reduced ejection fraction Acute respiratory failure with hypoxia Plan of Treatment: Follow-up with primary care provider as needed Follow-up with cardiology as needed Assessment: See discharge summary
--- NOTE | 2023-09-23 09:56 | MHC.CM.PN ---
Patient has been medically cleared for dc to home today, self care. Last IMM addressed on 09/21/2023.
== END 2023-09-23 10:49 | disposition home or self-care (01) | DRG 280 ==
LOC: HO.ED 12:08 → HO.EDOVER 14:09 → HO.IMC 09-21 08:33
PROVIDERS: Physician Assistant Medical; Student in an Organized Health Care Education/Training Program; Admitting Provider Nurse Practitioner Acute Care; Emergency Provider Emergency Medicine Emergency Medical Services; PCP Internal Medicine; Visit Provider Nurse Practitioner Acute Care
DX: I21.4 Non-ST elevation (NSTEMI) myocardial infarction (principal); I50.21 Acute systolic (congestive) heart failure; J96.01 Acute respiratory failure with hypoxia; I11.0 Hypertensive heart disease with heart failure; E87.5 Hyperkalemia; I25.5 Ischemic cardiomyopathy; I48.0 Paroxysmal atrial fibrillation; Z66 Do not resuscitate; K21.9 Gastro-esophageal reflux disease without esophagitis; F03.90 Unspecified dementia, unspecified severity, without behavioral disturbance, psychotic disturbance, mood disturbance, and anxiety; Z20.822 Contact with and (suspected) exposure to COVID-19; Z87.891 Personal history of nicotine dependence; Z79.01 Long term (current) use of anticoagulants; Z79.899 Other long term (current) drug therapy
CPT/HCPCS: 0241U; 36415; 71045; 80048; 80053; 81001; 83605; 83690; 83880; 84484; 85025; 85027; 85610; 85730; 87040; 93005; 93306; 99285; J1644; J1940

== ENCOUNTER → 2023-09-20 14:02 | Outpatient (BNV) | payer MEDICARE, SELFPAY | PROVIDERS: Admitting Provider Nurse Practitioner Acute Care; Emergency Provider Emergency Medicine Emergency Medical Services; PCP Internal Medicine; Visit Provider Internal Medicine Cardiovascular Disease | DX: I50.9 Heart failure, unspecified (principal); I21.4 Non-ST elevation (NSTEMI) myocardial infarction; I25.5 Ischemic cardiomyopathy; R94.31 Abnormal electrocardiogram [ECG] [EKG]; I48.91 Unspecified atrial fibrillation | CPT/HCPCS: 93010; 93306; 99223; 99233 ==

== ENCOUNTER → 2023-09-20 14:02 | Outpatient (BNV) | payer MEDICARE, SELFPAY | PROVIDERS: Admitting Provider Nurse Practitioner Acute Care; Emergency Provider Emergency Medicine Emergency Medical Services; PCP Internal Medicine; Visit Provider Nurse Practitioner Acute Care | DX: I25.5 Ischemic cardiomyopathy (principal); I48.91 Unspecified atrial fibrillation; I50.9 Heart failure, unspecified; I21.4 Non-ST elevation (NSTEMI) myocardial infarction | CPT/HCPCS: 99223; 99233; 99239 ==

== ENCOUNTER 2023-10-11 14:29 | Outpatient (AMB) | payer MEDICARE, SELFPAY ==
[2023-10-11 14:38] VITALS: BP 130/62; PULSE 68; BMI 20.7
--- NOTE | 2023-10-11 14:38 | A.OFFVIS_ITS ---
Vital Signs 10/11/23 14:38 Height 5 ft 10 in Weight 144 lb BMI 20.7 BP 130/62 Blood Pressure Location Lt brachial Position Sitting Pulse 68 Intake Visit Reasons: [facility] [place] [facility] [place] [facility]- Nstemi- KM Intake Note: [facility] follow up PT feels much better but tired Allergies No Known Allergies Allergy (Verified 09/20/23 08:35) Medication List - Last Reconciled 10/11/23 by Razia Dhillon NP amlodipine 5 mg PO DAILY apixaban (Eliquis) 5 mg PO BID aspirin 81 mg PO DAILY atorvastatin 40 mg PO BEDTIME cholecalciferol (vitamin D3) 25 mcg PO DAILY donepezil 5 mg PO BEDTIME furosemide (Lasix) 40 mg PO DAILY lisinopril 10 mg PO DAILY omeprazole 40 mg PO DAILY HPI Comments Details: 88-year-old male presents today for a follow-up from the being in-patient. Jennifer was seen for a NSTEMI. He presented to the emergency room for shortness of breath. Patient presents with his family member who lives with him. They both report he has been doing well. He denies chest pains, swelling, or shortness of breath, dizziness, bleeding, or palpitations. He states he is often tired. His family is being mindful of salt when cooking. He has not been doing daily weights. [facility] Medical History (Updated 10/12/23 @ 12:57 by Razia Dhillon NP) NSTEMI (non-ST elevated myocardial infarction) Ischemic cardiomyopathy Atrial flutter Congestive heart failure Sacroiliitis Lumbar radiculopathy, right Gluteal pain Atrial fibrillation Social History Household Members: Children Housing: House Do you presently have visiting nurse or other home services: No Comment: 1:1 sitter Patient Tobacco Use Status: Former Tobacco user Advance Directives Date on File: 12/28/20 service: No Review of Systems Const Denies weakness ENT Denies dizziness Card Denies chest pain, Denies chest pain with activity, Denies syncope, Denies rapid heart rate, Denies pedal edema, Denies edema, Denies leg edema, Denies lightheadedness, Denies palpitations, Denies dyspnea, Denies dyspnea on exertion and Denies orthopnea Resp Denies cough, Denies dyspnea and Denies dyspnea on exertion GI Denies hematochezia and Denies change in stool character Musc Denies abnormal gait, Denies muscle cramps, Denies muscle weakness, Denies numbness, Denies radiating pain into limb and Denies tingling Neuro Denies abnormal gait, Denies dizziness, Denies syncope, Denies numbness, Denies tingling and Denies weakness Endo Denies palpitations Physical Exam Vital Signs: Last Vital Signs Pulse 68 10/11/23 14:38 BP 130/62 10/11/23 14:38 BMI result Body Mass Index 20.7 Const General: healthy appearing and no acute distress Orientation/consciousness: patient oriented x3 HEENT Head: Yes normal to inspection Eyes General: appearance normal, both eyes and all related structures Neck Neck: Yes normal visual inspection Chest Chest palpation & inspection: normal inspection of the chest Resp Effort & Inspection: normal respiratory effort Auscultation: clear to auscultation bilaterally Cardio Jugular venous distension: no JVD Palpation: normal PMI Rate: regular rate Rhythm: abnormal rhythm Heart sounds: S1 normal heart sound present, S2 normal heart sound present, no click, no gallops, no murmurs and no rubs GI Inspection: Yes normal to inspection Palpation (GI): Soft to palpation Skin General skin exam: no rashes or lesions noted Neuro General: patient oriented x3 Extrem General: Yes normal to inspection Psych Appearance: grossly normal Assessment & Plan Assessment & Plan (1) Ischemic cardiomyopathy: Code(s): I25.5 - Ischemic cardiomyopathy Category: Medical (2) NSTEMI (non-ST elevated myocardial infarction): Code(s): I21.4 - Non-ST elevation (NSTEMI) myocardial infarction Category: Medical (3) Atrial fibrillation: Code(s): I48.91 - Unspecified atrial fibrillation Category: Medical (4) Congestive heart failure: Code(s): I50.9 - Heart failure, unspecified Category: Medical Qualifiers: Heart failure chronicity: acute (5) Hypertension: Code(s): I10 - Essential (primary) hypertension Plan Family and patient wish to conservatively treat patient. In-patient echo showed LAD territory wall motion abnormality with EF of 30-35%. On aspirin and statins. Patient currently not fluid overloaded. Discussed about daily weights and avoiding salt. On lasix 40mg daily. Blood pressure acceptable - on lisinopril 10mg QD. On eliquis for atrial fibrillation. No bleeding concerns at this time.
== END 2023-10-11 15:02 | disposition home or self-care (01) ==
PROVIDERS: PCP Internal Medicine; Visit Provider Nurse Practitioner
DX: I25.5 Ischemic cardiomyopathy (principal); I21.4 Non-ST elevation (NSTEMI) myocardial infarction; I48.91 Unspecified atrial fibrillation; I50.9 Heart failure, unspecified; I10 Essential (primary) hypertension
CPT/HCPCS: 99214

== ENCOUNTER → 2023-10-11 14:29 | Outpatient (BNVA) | payer MEDICARE, SELFPAY | PROVIDERS: PCP Internal Medicine; Visit Provider Nurse Practitioner | DX: I21.4 Non-ST elevation (NSTEMI) myocardial infarction (principal); I11.0 Hypertensive heart disease with heart failure; I50.9 Heart failure, unspecified; I25.5 Ischemic cardiomyopathy; I48.91 Unspecified atrial fibrillation | CPT/HCPCS: 99212 ==

== ENCOUNTER 2024-05-15 09:27 | Outpatient (REF) | payer MEDICARE, SELFPAY ==
[2024-05-15 11:13] LABS: Syphilis Screen Nonreactive (Nonreactive)
[2024-05-15 11:15] LABS: Vitamin B12 407 pg/mL (200-900)
[2024-05-17 01:33] LABS: Lyme Abs Screen <0.90 index
== END 2024-05-15 09:28 | disposition home or self-care (01) ==
LOC: HO.LAB 09:27
PROVIDERS: PCP Internal Medicine; Visit Provider Psychiatry & Neurology Neurology
DX: G30.9 Alzheimer's disease, unspecified (principal)
CPT/HCPCS: 36415; 82607; 86617; 86618; 86780

== ENCOUNTER 2024-06-25 20:15 | Emergency (ER) | payer MEDICARE, SELFPAY ==
--- NOTE | 2024-06-25 | ECG_ITS ---
Test Reason : DYSPNEA Blood Pressure : / mmHG Vent. Rate : 057 BPM Atrial Rate : 000 BPM P-R Int : 000 ms QRS Dur : 142 ms QT Int : 456 ms P-R-T Axes : 000 051 070 degrees QTc Int : 443 ms Atrial tachycardia with slow ventricular response Right bundle branch block Septal infarct (cited on or before 20-SEP-2023) Abnormal ECG When compared with ECG of 20-SEP-2023 08:59, Atrial tachycardia has replaced atrial flutter Right bundle branch block is now Present Referred By: Generic ED Physician Electronically Signed By:MIGUE BOWEN MD
--- NOTE | ~2024-06-25 | XR_ITS ---
CLINICAL HISTORY: dyspnea 1 view chest x-ray. Comparison: CR/SR - XR CHEST 1V - 09/20/23 09:46 EDT Findings: No focal pulmonary consolidation, pneumothorax, or left pleural effusion identified. There is minimal blunting of the right costophrenic angle. Heart size is mildly enlarged. Mild prominence of the right paratracheal stripe redemonstrated, unchanged. Impression: 1. Mild cardiomegaly with minimal blunting of the right costophrenic angle, possibly consistent with a small right pleural effusion or right pleural thickening/scarring. No focal pulmonary consolidation. This document has been electronically signed by: Evangelist Ladd MD on 06/25/2024 21:28:51
[2024-06-25 20:19] VITALS: BP 160/92; PULSE 88; O2SAT 96
[2024-06-25 20:24] VITALS: BP 149/51; PULSE 57; RESP 14; TEMP 36.7; O2SAT 97; BMI 16.5
[2024-06-25 20:45] LABS: Hematocrit 39.8 % (42.0-52.0); Hemoglobin 12.8 g/dl (14.0-18.0); Mean Corpuscular HGB Conc 32.2 g/dl (31.0-36.0); Mean Corpuscular Hemoglobin 30.7 pg (27.0-33.0); Mean Corpuscular Volume 95.4 fL (80.0-98.0); Mean Platelet Volume 10.5 fL (9.4-12.4); Platelet Count 153 X10*3/uL (160-400); Red Blood Count 4.17 X10*6/uL (4.60-5.80); Red Cell Distribution Width 14.6 % (11.0-16.0); White Blood Count 5.1 X10*3/uL (4.8-10.8)
[2024-06-25 21:07] LABS: Anion Gap 15 (12-20)
[2024-06-25 21:11] LABS: Alanine Aminotransferase 26 U/L (0-40); Albumin Level 4.2 g/dL (3.5-5.0); Alkaline Phosphatase 86 U/L (39-117); Aspartate Amino Transferase 25 U/L (5-37); Bilirubin Direct 0.2 mg/dL (0.0-0.5); Bilirubin Total 0.4 mg/dL (0.0-1.0); Blood Urea Nitrogen 47 mg/dL (9-16); Calcium 8.8 mg/dL (8.4-10.2); Carbon Dioxide 23 mmol/L (22-29); Chloride 106 mmol/L (96-108); Creatinine Clr Calc Pharmacy 28.1; Estimated Glomerular Filt Rate 45; Glucose Random 145 mg/dL (60-115); Magnesium 2.3 mg/dL (1.6-2.6); Potassium 5.3 mmol/L (3.3-5.1); Sodium 139 mmol/L (135-145); Total Protein 6.8 g/dL (6.5-8.0)
[2024-06-25 21:31] LABS: Troponin-I High Sensitivity 31.3 ng/L (<3.5-35.0)
--- NOTE | 2024-06-25 21:35 | ED_ITS ---
HPI - Altered Mental Status General Chief Complaint: Dyspnea Stated Complaint: covid +increased confusion Time Seen by Provider: 06/25/24 20:47 Source: patient and family (Son and daughter. Daughter is a nurse at [employer] [facility] [place]) Mode of arrival: EMS Limitations: no limitations History of Present Illness ED Provider: Dr. Brian Forman HPI narrative: 89-year-old male with a history paroxysmal atrial fibrillation, hypertension, GERD, dementia, NSTEMI 09/13/2023 who presents emergency department for evaluation of altered mental status. The information comes mainly from the patient's daughter who was a nurse that works here at [employer] [facility] [place]. The patient had cold-like symptoms yesterday and was feeling weak and was not himself therefore his family tested him for COVID and he was COVID positive. The patient has had a nonproductive cough, rhinorrhea, nasal congestion and shortness of breath but no other significant symptoms. The patient lives with he was grandchildren and apparently he had a period of altered mental status where he was not acting normally and was drooling. An ambulance was called and the patient was brought to the emergency department. Here in the emergency department the patient was at his baseline in his consistent with his dementia. He does answer questions appropriately and follows commands appropriately. Related Data Home Medications ?Medication ?Instructions ?Recorded ?Confirmed amlodipine 5 mg tablet 5 mg PO DAILY 09/20/23 10/11/23 apixaban 5 mg tablet (Eliquis) 5 mg PO BID 09/20/23 10/11/23 cholecalciferol (vitamin D3) 25 25 mcg PO DAILY 09/20/23 10/11/23 mcg (1,000 unit) tablet donepezil 5 mg tablet 5 mg PO BEDTIME 09/20/23 10/11/23 lisinopril 10 mg tablet 10 mg PO DAILY 09/20/23 10/11/23 omeprazole 40 mg capsule,delayed 40 mg PO DAILY 09/20/23 10/11/23 release Previous Rx's ?Medication ?Instructions ?Recorded aspirin 81 mg chewable tablet 81 mg PO DAILY #30 tabs 09/23/23 atorvastatin 40 mg tablet 40 mg PO BEDTIME #30 tabs 09/23/23 furosemide 40 mg tablet (Lasix) 40 mg PO DAILY #30 tabs 09/23/23 Allergies Allergy/AdvReac Type Severity Reaction Status Date / Time No Known Allergies Allergy Verified 06/25/24 20:29 Review of Systems 2 Review of Systems: Yes all other systems are reviewed and are negative [facility] Past Medical History [facility] Narrative: Social history: The patient lives at home with his grandchildren. The patient was daughter and son are here in the emergency department with the patient. The patient was a former heavy smoker and stop smoking 10-15 years prior. The patient was not drink alcohol. Medical History (Updated 10/12/23 @ 12:57 by Razia Dhillon NP) NSTEMI (non-ST elevated myocardial infarction) Ischemic cardiomyopathy Atrial flutter Congestive heart failure Sacroiliitis Lumbar radiculopathy, right Gluteal pain Atrial fibrillation Social History Social History Household Members: Children Housing: House Do you presently have visiting nurse or other home services: No Comment: 1:1 sitter Patient Tobacco Use Status: Former Tobacco user Smoked in Last 30 Days: No Use of substances other than those prescribed or required for medical reasons: No Advance Directives: No Advance Directives Information Provided: No Advance Directives Date on File: 12/28/20 service: No Physical Exam ED Vital Signs: Vital Signs - 24 hr 06/25/24 20:24 06/25/24 21:56 06/25/24 23:11 Temperature 98.1 F 99.6 F 98.9 F Pulse Rate 57 64 79 Respiratory Rate 14 21 H 17 Blood Pressure 149/51 H 154/64 H 156/58 H Pulse Oximetry 97 97 99 Oxygen Delivery Method Room Air Room Air Room Air BMI result Body Mass Index 16.5 Vital signs revealed an elevated blood pressure of 149/51 and bradycardia with a heart rate of 57 otherwise unremarkable. Exam: General: Awake, alert in no distress, oriented to person, answers questions appropriately, follows commands Head: Normocephalic, atraumatic EENT: PERRL, Lids normal, sclera normal, conjunctiva normal, nose normal , ears normal, throat without erythema or exudates Neck: Supple, no adenopathy Lung: breath sounds symmetric, slight wheezing at the end of expiration, no, rales and no rhonchi Chest: symmetric movement, nontender Heart: Bradycardia, irregularly irregular rhythm, normal S1, S2 no murmurs or rubs Abdomen: soft, non-tender, nondistended, normal bowel sounds Back: no vertebral tenderness, no CVAT Extremities: no deformities, moves all extremities symmetrically Neuro: Awake, alert, oriented, normal speech, cranial nerves intact, moves all extremities symmetrically Psych: Pleasant, cooperative Medications Administered Discontinued Medications Generic Name Dose Route Start Last Admin Trade Name Mendelq PRN Reason Stop Dose Admin Lactated Ringer's 1,000 mls @ 999 mls/hr 06/25/24 21:19 06/25/24 23:38 Lr IV 06/25/24 22:19 Infused .Q1H1M STA Infusion Lactated Ringer's 500 mls @ 999 mls/hr 06/25/24 21:30 06/25/24 23:38 Lr IV 06/25/24 22:00 Infused .Q31M ONE Infusion Medical Decision Making Medical Decision Making [facility] Narrative: 89-year-old male with a history paroxysmal atrial fibrillation, hypertension, GERD, dementia, NSTEMI 09/13/2023 who presents emergency department for evaluation of altered mental status. Patient had URI symptoms yesterday and tested positive for COVID, prior to coming to the emergency department the patient had brief period of altered mental status which is resolved. Vital signs revealed an elevated blood pressure and bradycardia. Physical examination revealed a nonfocal neurologic exam, the patient is oriented to person, answers questions appropriately and follows commands. Lung exam revealed wheezing at the end of expiration and heart exam is consistent with bradycardia and is atrial fibrillation. Differential diagnosis: ?Includes but is not limited to COVID-19 infection, COVID pneumonia, myocardial infarction, myocardial injury, TIA, stroke, electrolyte abnormalities, anemia, dehydration, volume depletion Following evaluation was ordered: CBC, BNP, liver panel, magnesium, troponin, urinalysis, chest x-ray one view, EKG Patient was initially treated with the following: Lactated Ringer's 1.5 L IV Course: 21:43 My independent interpretation patient's laboratory evaluation is as follows: WBC was normal 5100. Mild normocytic anemia with an H&H of 12 and 39. Low platelet count a 013982. Potassium elevated 5.3. BUN and creatinine elevated 47 and 1.47 with a GFR of 45 compared to a BUN and creatinine of 26 and 1.04 with a GFR of greater than 60 on 09/22/2023. This is consistent with volume depletion most likely caused by his COVID-19 infection and poor oral intake. LFTs were normal. Troponin was detectable but not elevated at 31.3, given his weakness I will repeat a 2 hour troponin at 12:30 to make sure that he was not had type 2 myocardial injury.. Patient's chest on my review revealed no acute infiltrates. Radiologist noted cardiomegaly with blunting of the right costophrenic angle consistent with a small pleural effusion. 01:14 Repeat troponin was 30.5 which is reassuring and was not elevated by more than 50%. I did discuss this with the patient and the patient's daughter. Given the patient's dementia, the daughter wants to manage the patient at home and will work on getting the patient increase his fluid and food intake over the next 24 hours. The patient will be discharged home. Admission/Observation Consideration of admission/observation: Escalation of care including admission/observation considered (Yes) Lab Data MDM Lab Attestation statement: I reviewed the patient's lab results. 06/25/24 20:36 06/25/24 20:36 Labs: Lab Results 06/25/24 06/25/24 06/26/24 Range/Units 20:36 23:16 00:34 WBC 5.1 (4.8-10.8) X10*3/uL RBC 4.17 L (4.60-5.80) X10*6/uL Hgb 12.8 L (14.0-18.0) g/dl Hct 39.8 L (42.0-52.0) % MCV 95.4 (80.0-98.0) fL MCH 30.7 (27.0-33.0) pg MCHC 32.2 (31.0-36.0) g/dl RDW 14.6 (11.0-16.0) % Plt Count 153 L (160-400) X10*3/uL MPV 10.5 (9.4-12.4) fL Absolute Nucleated RBC 0.000 (0.0-0.012) X10*3/uL Nucleated RBC % (auto) 0.0 (0.0-0.2) /100WBC Sodium 139 (135-145) mmol/L Potassium 5.3 H D (3.3-5.1) mmol/L Chloride 106 (96-108) mmol/L Carbon Dioxide 23 (22-29) mmol/L Anion Gap 15 (12-20) BUN 47 H (9-16) mg/dL Creatinine 1.47 H (0.5-1.4) mg/dL Estim Creat Clear Calc 28.1 Estimated GFR 45 Random Glucose 145 H (60-115) mg/dL Calcium 8.8 (8.4-10.2) mg/dL Magnesium 2.3 (1.6-2.6) mg/dL Total Bilirubin 0.4 (0.0-1.0) mg/dL Direct Bilirubin 0.2 (0.0-0.5) mg/dL AST 25 (5-37) U/L ALT 26 (0-40) U/L Alkaline Phosphatase 86 (39-117) U/L Troponin I High Sens 31.3 D 30.5 (<3.5-35.0) ng/L Total Protein 6.8 (6.5-8.0) g/dL Albumin 4.2 (3.5-5.0) g/dL Urine Color Yellow Urine Appearance Clear Urine pH 5.0 (5.0-9.0) Ur Specific [place] 1.020 (1.005-1.025) Urine Protein Trace (Neg-Trace) mg/dL Urine Glucose (UA) Negative (Negative) mg/dL Urine Ketones Trace (Negative) mg/dL Urine Blood Negative (Negative) Urine Nitrite Negative (Negative) Ur Leukocyte Esterase Negative (Negative) Independent Interpretation I performed an independent interpretation of an: EKG and Plain X-Ray Interpretation: My independent interpretation patient's 12 lead EKG done at 08:45 hours is as follows: Atrial fibrillation with a rate of 57, prolonged QRS of 142 milliseconds, normal QTC of 443 milliseconds, right bundle-branch block, inverted T-waves in leads 2 and 3. Compared to EKG dated 09/20/2023 the inverted T-waves are new. Atrial fibrillation is old and the right bundle-branch block is new. Radiology Impression Discussion of test interpretation with radiology: I have reviewed the radiologist's reading. Radiologist Impression: 1 view chest x-ray. Comparison: CR/SR - XR CHEST 1V - 09/20/23 09:46 EDT Findings: No focal pulmonary consolidation, pneumothorax, or left pleural effusion identified. There is minimal blunting of the right costophrenic angle. Heart size is mildly enlarged. Mild prominence of the right paratracheal stripe redemonstrated, unchanged. Impression: 1. Mild cardiomegaly with minimal blunting of the right costophrenic angle, possibly consistent with a small right pleural effusion or right pleural thickening/scarring. No focal pulmonary consolidation. This document has been electronically signed by: Evangelist Ladd MD on 06/25/2024 21:28:51 Dictated By: Evangelist Ladd MD Discharge Plan Discharge Clinical Impression: COVID-19 virus infection, Altered mental status, Acute dehydration Patient Disposition: Home, Self-Care Instructions: COVID-19 (Coronavirus Disease 2019) (ED) Additional Instructions: Your blood work revealed elevated kidney numbers which was caused by you being very dehydrated secondary to your COVID infection. It is important that you drink small amounts of fluid frequently throughout the day to stay hydrated. It is also important that you try to eat food throughout the day as well keep up your nutrition. He was returned to the emergency department if you develop increased weakness, difficulty breathing, unable to eat or drink or if you develop any other symptoms that are concerning to you or your family. Prescriptions: No Action donepezil 5 mg tablet 5 mg PO BEDTIME amlodipine 5 mg tablet 5 mg PO DAILY omeprazole 40 mg capsule,delayed release(DR/EC) 40 mg PO DAILY lisinopril 10 mg Tablet 10 mg PO DAILY cholecalciferol (vitamin D3) 25 mcg (1,000 unit) Tablet 25 mcg PO DAILY Eliquis 5 mg tablet 5 mg PO BID atorvastatin 40 mg Tablet 40 mg PO BEDTIME Qty: 30 0RF aspirin 81 mg Tablet,Chewable 81 mg PO DAILY Qty: 30 0RF furosemide [Lasix] 40 mg tablet 40 mg PO DAILY Qty: 30 0RF Print Language: Tuvaluan
[2024-06-25] MEDS: Lactated Ringers 1,000 ML 999 ML IV (21:54)
[2024-06-25] MEDS: Lactated Ringers 500 ML 999 ML IV (21:54)
[2024-06-25 21:56] VITALS: BP 154/64; PULSE 64; RESP 21; TEMP 37.6; O2SAT 97
[2024-06-25 23:11] VITALS: BP 156/58; PULSE 79; RESP 17; TEMP 37.2; O2SAT 99
[2024-06-25 23:27] LABS: Appearance Urine Clear; Color Urine Yellow; Glucose Urine UA Negative (Negative); Leukocyte Esterase Urine Negative (Negative); Nitrite Urine Negative (Negative); Urine Blood Negative (Negative); Urine Ketones Trace mg/dL (Negative); Urine Protein Trace mg/dL (Neg-Trace)
[2024-06-26 01:01] LABS: Troponin-I High Sensitivity 30.5 ng/L (<3.5-35.0)
[2024-06-26 01:54] VITALS: BP 137/62; PULSE 75; RESP 18; TEMP 37.3; O2SAT 96
[2024-06-26 02:05] VITALS: BP 137/62; PULSE 75; RESP 18; TEMP 37.3; O2SAT 96
== END 2024-06-26 02:06 | disposition home or self-care (01) ==
PROVIDERS: Emergency Provider Emergency Medicine Emergency Medical Services; PCP Internal Medicine
DX: U07.1 COVID-19 (principal); R41.82 Altered mental status, unspecified; E86.0 Dehydration; R11.2 Nausea with vomiting, unspecified; R00.0 Tachycardia, unspecified; R94.31 Abnormal electrocardiogram [ECG] [EKG]; Z79.899 Other long term (current) drug therapy
CPT/HCPCS: 36415; 71045; 80048; 80076; 81003; 83735; 84484; 85027; 93005; 96360; 96361; 99284; J7120

== ENCOUNTER → 2024-06-25 20:45 | Outpatient (BNV) | payer MEDICARE, SELFPAY | PROVIDERS: Emergency Provider Emergency Medicine Emergency Medical Services; PCP Internal Medicine; Visit Provider Internal Medicine Cardiovascular Disease | DX: R94.31 Abnormal electrocardiogram [ECG] [EKG] (principal) | CPT/HCPCS: 93010 ==

== ENCOUNTER → 2024-06-25 21:00 | Outpatient (BNV) | payer MEDICARE, SELFPAY | PROVIDERS: Emergency Provider Emergency Medicine Emergency Medical Services; PCP Internal Medicine; Visit Provider Radiology Diagnostic Radiology | DX: R06.00 Dyspnea, unspecified (principal) | CPT/HCPCS: 71045 ==

== ENCOUNTER 2024-09-12 13:54 | Emergency (ER) | payer MEDICARE, SELFPAY ==
--- NOTE | ~2024-09-12 | XR_ITS ---
EXAMINATION: XR CHEST CLINICAL INFORMATION: dyspnea COMPARISON: June 25, 2024. TECHNIQUE: Frontal view of the chest was obtained. FINDINGS: Meniscal shaped opacity in the mid to lower right hemithorax. Ill-defined patchy opacity in the right perihilar region. No pneumothorax. Left lung is aerated. Hyperinflated lungs. Calcified plaque thoracic aorta. Mild multilevel thoracic spondylosis. XR/XR chest 1V IMPRESSION: Moderate to large volume right-sided pleural effusion. Airspace disease right lung. Neoplasm cannot be excluded. Recommend follow-up until resolution. Electronically signed by: Román Stevens MD 09/12/2024 02:40 PM EDT
--- NOTE | 2024-09-12 13:56 | ECG_ITS ---
Test Reason : dyspnea Blood Pressure : */* mmHG Vent. Rate : 87 BPM Atrial Rate : 87 BPM P-R Int : 166 ms QRS Dur : 88 ms QT Int : 380 ms P-R-T Axes : 75 110 133 degrees QTcB Int : 457 ms Limb leads reversal Normal sinus rhythm Lateral infarct , age undetermined Nonspecific ST changes Abnormal ECG When compared with ECG of 25-Jun-2024 20:45, Sinus rhythm has replaced Atrial fibrillation Vent. rate has increased by 30 bpm Right bundle branch block is no longer Present Criteria for Septal infarct are no longer Present Lateral infarct is now Present Referred By: Cristy Manuel Electronically Signed By: Jeff Murray
[2024-09-12 13:58] VITALS: BP 157/81; BP 172/94; PULSE 88; PULSE 89; RESP 20; TEMP 36.6; O2SAT 100; O2SAT 98; BMI 19.1
--- NOTE | 2024-09-12 14:06 | MHC.CM.ED ---
Patient currently in ER. Received notification from Dr Manuel that patient's daughter is interested in hospice information when patient is at d/c'd home. Referral made to [facility] via [facility] so agency can reach out to daughter at another time.
[2024-09-12 14:15] LABS: MANUAL DIFF FLAG NO
[2024-09-12 14:17] LABS: Basophils Percent Auto 0.7 % (0-2); Hematocrit 34.7 % (42.0-52.0); Hemoglobin 10.3 g/dl (14.0-18.0); Imm Gran Abs Auto 0.01 X10*3/uL (0.00-0.03); Imm Gran Pct Auto 0.2 % (0.0-0.4); Lymphocytes Absolute Auto 0.6 X10*3/uL (1.2-4.9); Lymphocytes Percent Auto 10.3 % (20-40); Mean Corpuscular HGB Conc 29.7 g/dl (31.0-36.0); Mean Corpuscular Hemoglobin 28.4 pg (27.0-33.0); Mean Corpuscular Volume 95.6 fL (80.0-98.0); Mean Platelet Volume 10.2 fL (9.4-12.4); Monocytes Absolute Auto 0.4 X10*3/uL (0.1-1.2); Monocytes Percent Auto 5.9 % (2-11); Neutrophils Absolute Auto 4.9 x10*3/uL (2.0-8.3); Neutrophils Percent Auto 82.9 % (45-73); Platelet Count 256 X10*3/uL (160-400); Red Blood Count 3.63 X10*6/uL (4.60-5.80); Red Cell Distribution Width 16.5 % (11.0-16.0); White Blood Count 5.9 X10*3/uL (4.8-10.8)
[2024-09-12 14:24] LABS: Appearance Urine Clear; Color Urine Yellow; Glucose Urine UA Negative (Negative); Leukocyte Esterase Urine Negative (Negative); Nitrite Urine Negative (Negative); PH 5.5 (5.0-9.0); Urine Blood Negative (Negative); Urine Ketones Negative (Negative); Urine Protein Negative (Neg-Trace)
[2024-09-12 14:32] VITALS: BP 163/79; PULSE 89; RESP 20; O2SAT 100
[2024-09-12 14:37] LABS: B Type Natriuretic Peptide 2415 pg/mL (<100)
[2024-09-12 14:39] LABS: Troponin-I High Sensitivity 23.9 ng/L (<3.5-35.0)
[2024-09-12] MEDS: Furosemide 20 MG/2 ML VIAL IVPUSH (14:47)
[2024-09-12 14:59] LABS: Influenza A PCR NEGATIVE (Negative); Influenza B PCR NEGATIVE (Negative); Resp Syncy Virus RNA Qual PCR NEGATIVE (Negative); SARS COV2 PCR INHOUSE NEGATIVE (Negative)
--- NOTE | 2024-09-12 15:09 | ED_ITS ---
HPI - SOB/Dyspnea General Chief Complaint: Dyspnea Stated Complaint: GEN WEAKNESS,N/V,CPAP 98% PER EMS Time Seen by Provider: 09/12/24 13:55 Source: patient and old records reviewed Mode of arrival: ambulatory Limitations: no limitations History of Present Illness ED Provider: DELICIA WASHBURN Narrative: 89 yo male with PMH of CHF, pneumonia recently finished augmentin, CAD - only medical management no interventions per family, had thoracentesis 2L removed from [facility] a couple of months ago. He is on his medications and compliant. VNA noted him to be labored he has no complaints - EMS found him 88% on RA - started CPAP, IV lasix, nitro SL, nitropaste and he was able to come off CPAP on arrival to ED. Daughter who works here is HCP and she notes she wants hospice she wants him at home - they have O2, hospital bed, round the clock care. She just wants some IV lasix and to go home. I did discuss with her the xray lack of infl markers and I suspect this is all related to cancer - suspect mass in lung MD elicited complaint: shortness of breath Pertinent past history: congestive heart failure and pneumonia Onset (ago): day(s) (1) Context: recent illness Timing: progressively worsening Severity: mild Exacerbating factors: lying flat and exertion Relieving factors: oxygen and rest Known history of: congestive heart failure and recurrent pneumonia Associated symptoms: cough Treatment prior to arrival: oxygen, bronchodilator, NIPPV, nitroglycerin (SL and nitropaste) and diuretics (IV lasix 20mg) Related Data Home Medications ?Medication ?Instructions ?Recorded ?Confirmed amlodipine 5 mg tablet 5 mg PO DAILY 09/20/23 10/11/23 apixaban 5 mg tablet (Eliquis) 5 mg PO BID 09/20/23 10/11/23 cholecalciferol (vitamin D3) 25 25 mcg PO DAILY 09/20/23 10/11/23 mcg (1,000 unit) tablet donepezil 5 mg tablet 5 mg PO BEDTIME 09/20/23 10/11/23 lisinopril 10 mg tablet 10 mg PO DAILY 09/20/23 10/11/23 omeprazole 40 mg capsule,delayed 40 mg PO DAILY 09/20/23 10/11/23 release Previous Rx's ?Medication ?Instructions ?Recorded aspirin 81 mg chewable tablet 81 mg PO DAILY #30 tabs 09/23/23 atorvastatin 40 mg tablet 40 mg PO BEDTIME #30 tabs 09/23/23 furosemide 40 mg tablet (Lasix) 40 mg PO DAILY #30 tabs 09/23/23 Allergies Allergy/AdvReac Type Severity Reaction Status Date / Time No Known Allergies Allergy Verified 09/12/24 14:00 Review of Systems 2 Review of Systems: ROS unable to be obtained due to dementia [facility] Past Medical History Attestation statement: The following information was validated with the patient. Source: old records reviewed Medical History NSTEMI (non-ST elevated myocardial infarction) Ischemic cardiomyopathy Atrial flutter Congestive heart failure Sacroiliitis Lumbar radiculopathy, right Gluteal pain Atrial fibrillation Social History Social History Household Members: Children Housing: House Do you presently have visiting nurse or other home services: No Comment: 1:1 sitter Patient Tobacco Use Status: Former Tobacco user Advance Directives Date on File: 09/25/23 service: No Physical Exam 2 Vital Signs: Vital Signs: Last Vital Signs Temp 97.8 F 09/12/24 13:58 Pulse 89 09/12/24 14:32 Resp 20 09/12/24 14:32 BP 163/79 H 09/12/24 14:32 Pulse Ox 100 09/12/24 14:32 O2 Del Method Nasal Cannula 09/12/24 14:32 O2 Flow Rate 2 09/12/24 14:32 FiO2 50 09/12/24 13:58 Oxygen Flow Rate 7 09/12/24 13:58 BMI result Body Mass Index 19.1 Appearance: Alert. Oriented x1 No acute distress. Eyes: Pupils equal, round and reactive to light. ENT: Pharynx normal. Neck: Normal inspection. Neck supple. CVS: Normal heart rate and rhythm. Pulses normal. Respiratory: No respiratory distress not labored on arrival here. Breath sounds very diminished R lower lobe with crackles in L base Abdomen: Soft and nontender. Skin: Skin warm and dry. Normal skin color. Normal skin turgor. Extremities: No lower extremity edema. Neuro: Oriented to person. No motor deficit. No sensory deficit. CN2-12 intact Medications Administered Discontinued Medications Generic Name Dose Route Start Last Admin Trade Name Racheal PRN Reason Stop Dose Admin Furosemide 20 mg 09/12/24 14:40 09/12/24 14:47 Furosemide 20 Mg/2 Ml Vial IVPUSH 09/12/24 14:41 20 mg ONCE ONE Administration Protocol Medical Decision Making Medical Decision Making [facility] Narrative: 89 yo male with PMH of CHF, pneumonia recently finished augmentin, CAD here with acute onset dyspnea has diminished R lung sounds he responded well to therapy already off CPAP - family who is HCP notes at this time they want no interventions - they have O2 at home and want to take him home tonight. They have also requested a hospice consult at home - has requested they call the daughter. At this time the goal is to keep him comfortable and give him IV lasix. Differential Diagnosis Differential Diagnoses: The differential diagnosis associated with the presentation includes CHF, effusion, mass Admission/Observation Consideration of admission/observation: Escalation of care including admission/observation considered declined admission Lab Data [facility] Lab Attestation statement: I reviewed the patient's lab results. 09/12/24 14:10 09/12/24 14:10 Labs: Lab Results 09/12/24 09/12/24 09/12/24 Range/Units 14:10 14:11 14:15 WBC 5.9 (4.8-10.8) X10*3/uL RBC 3.63 L (4.60-5.80) X10*6/uL Hgb 10.3 L (14.0-18.0) g/dl Hct 34.7 L (42.0-52.0) % MCV 95.6 (80.0-98.0) fL MCH 28.4 (27.0-33.0) pg MCHC 29.7 L (31.0-36.0) g/dl RDW 16.5 H (11.0-16.0) % Plt Count 256 D (160-400) X10*3/uL MPV 10.2 (9.4-12.4) fL Immature Gran % (Auto) 0.2 (0.0-0.4) % Neut % (Auto) 82.9 H (45-73) % Lymph % (Auto) 10.3 L (20-40) % [place] % (Auto) 5.9 (2-11) % Eos % (Auto) 0.0 (0-4) % Baso % (Auto) 0.7 (0-2) % Lymph # (Auto) 0.6 L (1.2-4.9) X10*3/uL [place] # (Auto) 0.4 (0.1-1.2) X10*3/uL Eos # (Auto) 0.0 (0.0-0.4) X10*3/uL Baso # (Auto) 0.0 (0.0-0.2) X10*3/uL Abs Immat Gran (auto) 0.01 (0.00-0.03) X10*3/uL Absolute Neuts (auto) 4.9 (2.0-8.3) x10*3/uL Absolute Nucleated RBC 0.000 (0.0-0.012) X10*3/uL Nucleated RBC % (auto) 0.0 (0.0-0.2) /100WBC Troponin I High Sens 23.9 (<3.5-35.0) ng/L B-Natriuretic Peptide 2415 H (<100) pg/mL Urine Color Yellow Urine Appearance Clear Urine pH 5.5 (5.0-9.0) Ur Specific [place] 1.010 (1.005-1.025) Urine Protein Negative (Neg-Trace) mg/dL Urine Glucose (UA) Negative (Negative) mg/dL Urine Ketones Negative (Negative) mg/dL Urine Blood Negative (Negative) Urine Nitrite Negative (Negative) Ur Leukocyte Esterase Negative (Negative) Influenza Type A (PCR) NEGATIVE (Negative) Influenza Type B (PCR) NEGATIVE (Negative) RSV RNA Qual (PCR) NEGATIVE (Negative) SARS-CoV-2 RNA (RT-PCR) NEGATIVE (Negative) Independent Interpretation I performed an independent interpretation of an: EKG and Plain X-Ray (mass, R effusion) Interpretation: Rate: 87 Rhythm: NSR [place]: normal Normal P waves. Normal LAMONTE. Normal QRS complex. ST T wave : nonspecific ST T wave changes no PARVEEN qTC: 457 prior studies: no STEMI The study has been interpreted contemporaneously by me. . Radiology Impression Discussion of test interpretation with radiology: I have reviewed the radiologist's reading. Independent Historian Clinical information obtained from an independent historian. History obtained from or confirmed by: EMS and Other (daughter) External Record Review External record reviewed: Inpatient record and Outpatient record Discharge Plan Discharge Clinical Impression: Hypoxia, Pleural effusion, Lung mass Patient Disposition: Home, Self-Care Instructions: Hypoxia (ED), Pleural Effusion (ED) Additional Instructions: return for any worsening symptoms or needs case management put in an order for hospice as outpatient I suspect based off imaging and neg inflammatory markers that there is a lung mass/cancer on R side For comfort there is the possiblity of a pleurX catheter that stays in and can intermittently drain any fluid on the R lung - you can follow up with thoracic surgery or IR here Prescriptions: No Action donepezil 5 mg tablet 5 mg PO BEDTIME amlodipine 5 mg tablet 5 mg PO DAILY omeprazole 40 mg capsule,delayed release(DR/EC) 40 mg PO DAILY lisinopril 10 mg Tablet 10 mg PO DAILY cholecalciferol (vitamin D3) 25 mcg (1,000 unit) Tablet 25 mcg PO DAILY Eliquis 5 mg tablet 5 mg PO BID atorvastatin 40 mg Tablet 40 mg PO BEDTIME Qty: 30 0RF aspirin 81 mg Tablet,Chewable 81 mg PO DAILY Qty: 30 0RF furosemide [Lasix] 40 mg tablet 40 mg PO DAILY Qty: 30 0RF Referrals: Samantha GILLESPIE [Outside] ([facility] will contact you about hospice information. ) [facility] [Provider Group] Print Language: Albanian
[2024-09-12 15:13] LABS: Alanine Aminotransferase 18 U/L (0-40); Albumin Level 3.6 g/dL (3.5-5.0); Alkaline Phosphatase 94 U/L (39-117); Anion Gap 11 (12-20); Aspartate Amino Transferase 20 U/L (5-37); Bilirubin Direct 0.1 mg/dL (0.0-0.5); Bilirubin Total 0.3 mg/dL (0.0-1.0); Blood Urea Nitrogen 26 mg/dL (9-16); Carbon Dioxide 31 mmol/L (22-29); Chloride 106 mmol/L (96-108); Creatinine Clr Calc Pharmacy 41.5; Estimated Glomerular Filt Rate > 60; Glucose Random 121 mg/dL (60-115); Lipase 15 U/L (8-78); Potassium 4.9 mmol/L (3.3-5.1); Sodium 143 mmol/L (135-145); Total Protein 6.8 g/dL (6.5-8.0)
[2024-09-12 15:27] LABS: Procalcitonin 0.03 ng/mL
--- NOTE | 2024-09-12 15:27 | PC.NURSE ---
trialed patient off of supplemental oxygen, patient stood to use urinal, patient desat down to 81%, patient placed back on 2l nc. daughter at bedside, patient voided 200cc
[2024-09-12 15:57] VITALS: BP 145/75; PULSE 87; RESP 24; TEMP 36.6; O2SAT 100
[2024-09-12 16:57] VITALS: BP 145/75; PULSE 87; RESP 24; TEMP 36.6; O2SAT 100
== END 2024-09-12 16:57 | disposition home or self-care (01) ==
PROVIDERS: Emergency Provider Emergency Medicine; PCP Internal Medicine
DX: R09.02 Hypoxemia (principal); J90 Pleural effusion, not elsewhere classified; R91.8 Other nonspecific abnormal finding of lung field; Z03.818 Encounter for observation for suspected exposure to other biological agents ruled out; I48.91 Unspecified atrial fibrillation; Z79.82 Long term (current) use of aspirin; Z79.899 Other long term (current) drug therapy; Z79.01 Long term (current) use of anticoagulants; Z79.02 Long term (current) use of antithrombotics/antiplatelets; Z79.52 Long term (current) use of systemic steroids
CPT/HCPCS: 0241U; 36415; 71045; 80048; 80076; 81003; 83690; 83735; 83880; 84145; 84484; 85025; 86140; 93005; 96374; 99284; J1940

== ENCOUNTER → 2024-09-12 13:56 | Outpatient (BNV) | payer MEDICARE, SELFPAY | PROVIDERS: Emergency Provider Emergency Medicine; PCP Internal Medicine; Visit Provider Internal Medicine Cardiovascular Disease | DX: R94.31 Abnormal electrocardiogram [ECG] [EKG] (principal); R06.00 Dyspnea, unspecified | CPT/HCPCS: 93010 ==

== ENCOUNTER → 2024-09-12 13:56 | Outpatient (BNV) | payer MEDICARE, SELFPAY | PROVIDERS: Emergency Provider Emergency Medicine; PCP Internal Medicine; Visit Provider Radiology Diagnostic Radiology | DX: J90 Pleural effusion, not elsewhere classified (principal) | CPT/HCPCS: 71045 ==